=== PATIENT | male | born 1950 | race Asian ===

== ENCOUNTER 2023-12-19 06:13 | Day surgery (SDC) | payer OTHER, SELFPAY ==
[2023-12-19] VITALS (19 sets, daily range): BP systolic 119–150; BP diastolic 49–65; BMI 23.4
[2023-12-19 06:48] LABS: Hematocrit 34.1 % (39.0-52.0); Hemoglobin 11.3 g/dL (13.0-18.0); Mean Corp Hgb Conc. 33.1 g/dL (33.0-37.0); Mean Corpuscular Hgb 33.2 pg (27.0-31.0); Mean Corpuscular Volume 100.3 fL (80.0-94.0); Mean Platelet Volume 10.3 fL (7.4-10.4); Platelet Count 235 10^3/uL (130-400); Red Cell Dist. Width 14.2 % (11.5-14.5); White Blood Cell Count 10.9 10^3/uL (4.8-10.8)
[2023-12-19 06:58] LABS: INR 1.05; PT 13.8 Sec (11.4-14.6)
[2023-12-19 07:03] LABS: Blood Urea Nitrogen 43 mg/dl (9-20); Calcium 9.7 mg/dl (8.4-10.2); Carbon Dioxide 17 mmol/L (22-30); Chloride 108 mmol/L (98-107); Estimated Creatinine Clearance 40 ml/min; Glucose 127 mg/dl (70-99); Sodium 140 mmol/L (135-145); eGFR 48.85
--- NOTE | 2023-12-19 07:11 | W.SUR.PREOP ---
Pre-Operative Surgical Note
-
I have examined this patient prior to the performance of the scheduled procedure.
The patient's condition is unchanged from the time of the current History and
Physical and the patient is able to undergo the scheduled procedure.
--- NOTE | 2023-12-19 08:21 | W.SUR.POST ---
Surgical Immediate Post Op
Note
Pre Op Diagnosis: PAD
Post Op Diagnosis: Same
Procedure Performed: Diagnostic right lower extremity arteriogram
Primary Surgeon: Elan
Anesthesia: Local and sedation
Estimated Blood Loss: 2 cc
Fluids: See anesthesia flowsheet
Drains/Shunts: None
Specimens/Cultures: None
Doppler/Duplex/Angio (Y/N): Y
Complications: None
Operative Findings: Iliac aneurysms, bifurcation plaque, below knee arterial disease-requires open surgical intervention
--- NOTE | 2023-12-19 08:43 | OR.RPT ---
Operative Report
Operative Report
PROCEDURE DATE: 12/19/2023
Preoperative diagnosis: Debilitating right greater than left lower extremity claudication.
Postoperative diagnosis: Same
Procedure:
1. Duplex assisted left common femoral artery cannulation.
2. Aortogram and pelvic angiogram.
3. Diagnostic right lower extremity arteriogram with selective cannulation right common femoral artery via left common femoral artery puncture.
4. Left lower extremity arteriogram.
5. Supervision and interpretation.
Surgeon: Ansari
Tire Fabricator: None
Complications: None
Anesthesia: Local, sedation
Fluoroscopy:
4 min
24 mGy
6.41 Gy.cm2
Indications for procedure:
Debilitating right lower extremity calf claudication, worsening also on the left side now. Risk/benefits/alternatives of angiography discussed. Patient understood all wished to proceed.
Description of procedure:
Patient was identified, brought to the operating room. Placed on the table in the supine position. After the adequate administration of anesthesia, the patient was prepped and draped in the standard surgical fashion. A standard preoperative
timeout was undertaken and everybody was in agreement with the plan.
The left common femoral artery was accessed with a micropuncture kit under direct duplex ultrasound guidance. A 5 Samoan sheath was then advanced over a 0.035 inch wire, and a interiano's hook catheter was advanced into the abdominal aorta.
Aortogram and pelvic angiogram was obtained. Findings as follows:
Infrarenal aorta: Patent distal infrarenal aorta, mildly ectatic. No significant stenosis.
Right common iliac artery: Patent with significant luminal irregularity about a centimeter beyond the origin with what appeared to be possible aneurysmal degeneration more distally. Created an irregular flow channel such that flow in the true
segment of the lumen was continuous with mild to moderate stenosis, but there was some retrograde filling into a potential partially thrombosed aneurysm sac. Slightly difficult to tell on two-dimensional angiography.
Right external iliac artery: Patent with mild to moderate stenosis in the distal most segment.
Left common iliac artery: Patent with aneurysmal degeneration proximally, likely partially thrombosed.
Left external iliac artery: Patent with no significant stenosis.
Using a floppy angled hydrophilic wire, the right common femoral artery was cannulated and the catheter was advanced. Right lower extremity arteriogram was obtained. Findings as follows:
Common femoral artery: Patent with some small popcorn-like plaques but no severe stenosis.
Profunda femoris artery: Essentially occluded at the origin with bulky popcorn-like plaque. There is a large collateral that emanated from the origin of the profunda versus the distal common femoral artery and then reconstituted flow in the more
distal profunda that could be seen well on delayed imaging. Initial angiography suggested that the proximal branch was the main profunda, but the angle suggested otherwise, and in addition could see the bulky plaque in the main profunda at the
origin. And then could see reconstitution on delayed imaging.
Superficial femoral artery: Severe bulky plaque at the origin extending all the way to the origin that results in severe stenosis for the first 2 to 3 cm.
Popliteal artery: Patent with no definitive stenosis.
Anterior tibial artery: Patent proximally for few centimeters and then appears occluded. Although tibial filling was relatively weak/opacification was weak.
Tibial peroneal trunk: Patent with what appears to be severe diffuse stenosis. Although tibial filling was relatively weak/opacification was weak.
Peroneal artery: Patent, but distal filling slightly harder to see but it did appear to fill slowly distally. Tibial filling was relatively weak/opacification was weak.
Posterior tibial artery: Patent, appeared to be the dominant runoff vessel to the foot. On very delayed imaging could see crossing into the foot. But the more proximal to mid segment appeared diffusely small in size, but was difficult to fully
assess. Tibial filling was relatively weak/opacification was weak.
At this point, I felt that endovascular solution was not optimal. Patient will be potentially prepped for (discussions for) possible femoral endarterectomy with retrograde iliac stenting if needed. However will obtain CT angiogram imaging first to
better assess aneurysmal iliac arteries and common femoral/femoral bifurcation disease.
Patient was transported to the recovery room in stable condition. The sheath will be withdrawn there and manual pressure applied to the puncture site.
The patient tolerated procedure well.
[2023-12-19 11:09] LABS: Glucose - Point of Care 125 mg/dl (70-99)
== END 2023-12-19 12:37 | disposition home or self-care (01) ==
LOC: CATH 06:13
PROVIDERS: ATTENDING PHYSICIAN Surgery Vascular Surgery; FAMILY PHYSICIAN Internal Medicine; OTHER PHYSICIAN Internal Medicine Cardiovascular Disease
DX: I70.213 Atherosclerosis of native arteries of extremities with intermittent claudication, bilateral legs (principal); I12.9 Hypertensive chronic kidney disease with stage 1 through stage 4 chronic kidney disease, or unspecified chronic kidney disease; E11.22 Type 2 diabetes mellitus with diabetic chronic kidney disease; N18.30 Chronic kidney disease, stage 3 unspecified; I65.23 Occlusion and stenosis of bilateral carotid arteries; I44.7 Left bundle-branch block, unspecified; Z87.891 Personal history of nicotine dependence; Z79.84 Long term (current) use of oral hypoglycemic drugs; Z79.82 Long term (current) use of aspirin
CPT/HCPCS: 36246; 75716; 75625; 80048; 82962; 85027; 85610; 85730; 86850; 86900; 86901; C1769; C1894; Q9967

== ENCOUNTER 2024-01-01 08:34 | Outpatient (RCR) | payer MEDICARE, OTHER, SELFPAY ==
[2024-01-01 08:45] VITALS: BP 143/55
[2024-01-01] MEDS: SODIUM BICARBONATE 1150 MEQ IV (08:59)
== END 2024-01-02 09:55 | disposition home or self-care (01) ==
LOC: OID 08:34
PROVIDERS: ATTENDING PHYSICIAN Surgery Vascular Surgery; FAMILY PHYSICIAN Internal Medicine
DX: I73.9 Peripheral vascular disease, unspecified (principal); I65.23 Occlusion and stenosis of bilateral carotid arteries
CPT/HCPCS: 96365; 96366

== ENCOUNTER → 2024-01-01 09:17 | Outpatient (REF) | payer MEDICARE, OTHER, SELFPAY | LOC: RAD 09:17 | PROVIDERS: ATTENDING PHYSICIAN Surgery Vascular Surgery; FAMILY PHYSICIAN Internal Medicine | DX: I73.9 Peripheral vascular disease, unspecified (principal) | CPT/HCPCS: 75635; Q9967 ==

== ENCOUNTER 2024-01-29 08:04 | Inpatient (IN) | payer MEDICARE, OTHER, SELFPAY ==
[2024-01-27 09:27] VITALS: BMI 22.6
[2024-01-27 09:49] LABS: % Basophils 0.5 % (0-2); % Eosinophils 2.1 % (0-6); % Immature Granulocytes 0.7 % (0-0.5); % Lymphocytes 10.7 % (20.5-51.1); % Monocytes 8.5 % (1.7-9.3); % Neutrophils 77.5 % (42.2-75.2); Absolute Eosinophils 0.2 10^3/uL (0-0.7); Absolute Immature Granulocytes 0.1 10^3/uL (0-0.05); Absolute Lymphocytes 0.8 10^3/uL (1.2-3.4); Absolute Monocytes 0.6 10^3/uL (0.1-0.6); Absolute Neutrophils 5.6 10^3/uL (1.4-6.5); Hematocrit 29.6 % (39.0-52.0); Hemoglobin 9.8 g/dL (13.0-18.0); Mean Corp Hgb Conc. 33.1 g/dL (33.0-37.0); Mean Corpuscular Hgb 32.2 pg (27.0-31.0); Mean Corpuscular Volume 97.4 fL (80.0-94.0); Mean Platelet Volume 9.7 fL (7.4-10.4); Nucleated Red Blood Cells % 0 % (-); Platelet Count 219 10^3/uL (130-400); Red Blood Cell Count 3.04 10^6/uL (4.70-6.10); Red Cell Dist. Width 13.5 % (11.5-14.5); White Blood Cell Count 7.3 10^3/uL (4.8-10.8)
[2024-01-27 10:11] LABS: INR 1.12; PT 14.2 Sec (11.4-14.6)
[2024-01-27 10:23] LABS: APTT 28.4 Sec (23.4-35.0)
[2024-01-27 10:46] LABS: Blood Urea Nitrogen 25 mg/dl (9-20); Calcium 9.5 mg/dl (8.4-10.2); Carbon Dioxide 22 mmol/L (22-30); Chloride 107 mmol/L (98-107); Estimated Creatinine Clearance 43 ml/min; Glucose 149 mg/dl (70-99); Potassium 4.8 mmol/L (3.5-5.1); Sodium 141 mmol/L (135-145); eGFR 53.07
[2024-01-29] VITALS (19 sets, daily range): BP systolic 105–160; BP diastolic 49–76; BMI 22.5
[2024-01-29 08:58] LABS: Glucose - Point of Care 126 mg/dl (70-99)
[2024-01-29] MEDS: PERIDEX 0.12% ORAL RINSE 15 ML PO (09:01)
[2024-01-29] MEDS: BACTROBAN NASAL 1 GRAM NASAL (09:01)
[2024-01-29] MEDS: NSS 500 IV (09:02)
[2024-01-29 14:58] LABS: Glucose - Point of Care 148 mg/dl (70-99)
--- NOTE | 2024-01-29 15:03 | W.SUR.POST ---
Surgical Immediate Post Op
Note
Pre Op Diagnosis: Peripheral arterial disease
Post Op Diagnosis: Peripheral arterial disease
Procedure Performed: Right femoral endarterectomy with a oefp-qe-kizf anastomosis of SFA/profunda and interposition femoral bypass
Primary Surgeon: Dipesh Ansari MD
Office Clerk Assistant: RAFAELA Bush
Anesthesia: GETA
Estimated Blood Loss: 15ml
Fluids: See anesthesia flowsheet
Drains/Shunts: N/A
Specimens/Cultures: Right femoral plaque
Doppler/Duplex/Angio (Y/N): Y
Complications: None
Operative Findings: Doppler right leg PT/DP signal
[2024-01-29 15:38] LABS: Glucose - Point of Care 161 mg/dl (70-99)
--- NOTE | 2024-01-29 15:41 | CON.INTV ---
Consultation
Consultation Request
Date/Time Consultation Requested: 01/29/2024 - 150
Date/Time Consultation Performed: 01/29/2024 - 153
Requesting Provider: RAFAELA Lees
Performing Provider: Cade Roblero MD
Reason for Consultation: s/p right femoral endarterectomy
Medical History
-
Chief Complaint: Elective right femoral endarterectomy with bypass from HORSE TRAINER to profunda/SFA
History of Present Illness:
73-year-old male former tobacco smoker with a past medical history of carotid artery stenosis, PAD, hyperlipidemia, hypertension, left bundle branch block, DM type II and CKD stage III who presents with elective right femoral endarterectomy with RLE
bypass. Patient known to vascular surgery service with last visit on 01/07/[address] Ansari. Patient has known PAD. He has extensive atherosclerotic plaque diffusely in his lower extremities. His right common iliac artery has a dissection like
plaque that results in moderate stenosis. He also has significant stenosis in the right external iliac artery more distally. He does have more distal runoff disease as well. He also has diffuse iliac disease on the left with ectatic left common
iliac artery with almost dissection like finding seen on prior angiogram. Vascular intervention was discussed including right femoral endarterectomy. Risks and benefits of vascular intervention were discussed, and today he underwent right femoral
endarterectomy with interposition bypass from common femoral artery to syndactylized profunda/superficial femoral artery. There were no immediate complications and he was transferred to the ICU for further care. [facility] services consulted for
additional management/recommendations.
When I saw the patient he was resting in bed in no acute distress. Patient's , [employer], at bedside. All questions were answered. Heart rate currently 71, BP via left radial A-line: 158/55, BP via NIBP: 141/66, and saturating 97% on room air. He
is in no acute distress, breathing comfortably. Denies CP, SOB, VELASQUEZ, abdominal pain, nausea, lower extremity tingling/numbness/weakness, fevers or chills.
PMHx: DM type II, hyperlipidemia, LBBB, hypertension, CKD stage III, carotid artery stenosis, PAD
PShx: Cataract extraction, Plaquenil retinopathy, appendectomy, prostate biopsy
Past Medical History
Past Medical History: Other (Above as per HPI)
Past Surgical History: Other (Above as per HPI)
Social History
Tobacco: Former Smoker (Previous heavy smoker smoking 2-2.5 packs/day x 35-40 years, quit ~20 years ago)
Alcohol: None
Drug: None
Personal:
Living: With Family
Family History
Family History: Reviewed & Not Pertinent
Allergies / Home Medications
Allergies
Allergy/AdvReac Type Severity Reaction Status Date / Time
No Known Allergies Allergy Verified 01/29/24 08:20
Home Medications
�Medication �Instructions �Recorded �Confirmed �Last Taken �Type
Grape Seed 1 tab PO BID 12/17/23 01/29/24 01/28/24 18:00 History
amlodipine 10 mg tablet 5 mg PO DAILY 12/17/23 01/29/24 01/28/24 06:00 History
ascorbic acid (vitamin C) 1,000 mg 2 g PO TID 12/17/23 01/29/24 01/28/24 18:00 History
tablet (Vitamin C)
aspirin 81 mg chewable tablet 81 mg PO DAILY 12/17/23 01/29/24 01/28/24 06:00 History
calcium 600 mg (as 1 tab PO DAILY 12/17/23 01/29/24 01/28/24 06:00 History
carbonate)-vitamin D3 10 mcg (400
unit) tablet (Calcium 600 + D(3))
cyanocobalamin (vitamin B-12) 1,000 mcg PO .AFTERNOON 12/17/23 01/29/24 01/28/24 12:00 History
1,000 mcg capsule
fpekvbpfjuo-wkf-jcgejfoer-vitC 1 cap PO BID 12/17/23 01/29/24 01/28/24 18:00 History
capsule (Glucosamine Complex-MSM
capsule)
lutein 1 tab PO DAILY 12/17/23 01/29/24 01/28/24 18:00 History
xwvkqfmlxayf-veuzuvyk-cvrstx tablet 1 tab PO DAILY 12/17/23 01/29/24 01/28/24 06:00 History
olmesartan 40 mg tablet 40 mg PO QPM 12/17/23 01/29/24 01/28/24 18:00 History
tamsulosin 0.4 mg capsule 0.4 mg PO DAILY 12/17/23 01/29/24 01/28/24 18:00 History
atorvastatin 40 mg tablet 40 mg PO .AFTERNOON 12/19/23 01/29/24 01/28/24 12:00 History
metoprolol succinate 25 mg capsule 25 mg PO DAILY 12/19/23 01/29/24 01/28/24 12:00 History
sprinkle, ext. release 24 hr
coenzyme Q10 100 mg capsule 200 mg PO DAILY 01/29/24 01/29/24 01/28/24 06:00 History
(CoQ-10)
metformin 500 mg tablet,extended 500 mg PO QPM Diabetes 01/29/24 01/29/24 01/27/24 History
release 24 hr
Review of Systems
-
History Source: Patient
All other systems: Negative unless noted (12 point ROS performed and is negative unless mentioned above.)
Vitals / Labs / Diagnostic Testing
Vital Signs
Temp Pulse Resp BP Pulse Ox
97.5 F 70 14 148/63 97
01/29/24 19:52 01/29/24 18:45 01/29/24 18:45 01/29/24 18:30 01/29/24 18:45
Lab Data
01/29/24 15:45
Diagnostic Testing:
Physical Exam
-
HEENT: Normocephalic and Anicteric
Cardiovascular: S1/S2 and Peripheral Edema (negative)
Respiratory: Clear, Wheeze (negative), Rales (negative), Rhonchi (negative) and Non-Labored Respirations
GI: Soft, Non Distended, Non Tender and Normal Bowel Sounds
Neurology: AO x 3 and Tremors (negative)
Skin: Warm and Dry
General: Respiratory Distress (negative), Comfortable, Fever (negative), Chills (negative) and Sweats (negative)
Assessment
-
Assessment: 73-year-old male former tobacco smoker with a past medical history of carotid artery stenosis, PAD, hyperlipidemia, hypertension, left bundle branch block, DM type II and CKD stage III who presents with elective right femoral
endarterectomy with RLE bypass. Patient known to vascular surgery service with last visit on 01/07/[address] Ansari. Patient has known PAD. He has extensive atherosclerotic plaque diffusely in his lower extremities. His right common iliac artery
has a dissection like plaque that results in moderate stenosis. He also has significant stenosis in the right external iliac artery more distally. He does have more distal runoff disease as well. 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
ectatic left common iliac artery with almost dissection like finding seen on prior angiogram. Vascular intervention was discussed including right femoral endarterectomy. Risks and benefits of vascular intervention were discussed, and on 01/29/2024
he underwent right femoral endarterectomy with interposition bypass from common femoral artery to syndactylized profunda/superficial femoral artery. There were no immediate complications and he was transferred to the ICU for further care.
[facility] services consulted for additional management/recommendations.
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
Impression:
#PAD with debilitating right lower extremity claudication with severe femoral bifurcation plaque/occlusive disease s/p right femoral endarterectomy with interposition bypass from HORSE TRAINER to syndactylized profunda/SFA (POD #0)
#Former heavy tobacco smoker (quit 20 years ago with >00-sffr-pjvo history)
#Chronic anemia
#Metabolic acidosis with normal anion gap
#Hyperkalemia (mild)
#DM type II c/b hyperglycemia
#History of LBBB
#Carotid artery stenosis
#Hyperlipidemia
#Hypertension
Plan:
Postoperative surgical intensive care unit monitoring
Supplemental oxygen as needed to maintain SpO2 >90-94%
prn nebulized bronchodilators
Incentive spirometry encouraged 10x per hour for at least 4 hrs a day
Aspiration precautions
Pain control
Neuro and vascular checks per protocol
Maintain MAP>65
Replete electrolytes with K>4, Mg>2
Maintain euglycemia with goal BG 140-180
Vascular surgery following-correspondence and operative notes reviewed
Transfuse blood products as needed to keep Hb>7g/dL, and plt>50k (given post-operative status)
DVT prophylaxis
Early nutrition
Early mobilization
Critical care statement: A total of 41 minutes of critical care time was provided for this patient today. This includes management of unstable vital signs, evaluation of the patient at bedside, reviewing the patient's pertinent medical records
including radiographs, microbiology, laboratory evaluations, and discussion with primary team, consultants, pharmacy, nutrition, physical therapy, case management, charge nurse, critical care nursing, and respiratory therapy.
--- NOTE | 2024-01-29 15:50 | OR.RPT ---
Operative Report
Operative Report
PROCEDURE DATE: 01/29/2024
Preoperative diagnosis: Debilitating right lower extremity claudication. Severe femoral bifurcation plaque/occlusive disease.
Postoperative diagnosis: Same
Procedure: Right femoral endarterectomy with interposition bypass from common femoral artery to syndactylized profunda/superficial femoral artery.
Surgeon: Elan
Supervisory Investigative Specialist: CASS Diallo, required for all aspects of procedure including assistance with traction/countertraction, following of suture line, assistance with closure.
Complications: None
Anesthesia: General
Indications for procedure:
Severe right lower extremity claudication. Femoral bifurcation disease identified on angiography. Risk/benefits/alternatives of femoral endarterectomy fully discussed. Patient understood all wish to proceed.
Description of procedure:
Patient was identified brought to the operating room placed on the table in supine position. After the adequate administration of anesthesia he was prepped and draped in the standard surgical fashion. A standard preoperative timeout was undertaken
and everybody was in agreement the plan. A standard longitudinal incision was made in the right groin that was carried through the skin subcutaneous tissue with the electrocautery. I carried it down to the level of the inguinal ligament and
identified the common femoral artery as it emerged from underneath the inguinal ligament. The common femoral artery was dissected past the femoral bifurcation onto the superficial femoral artery on its anterior surface initially. I dissected the
superficial femoral artery for about 4 to 6 cm beyond its origin where it was very soft. The first 1 or 2 cm of the SFA was hardened with significant plaque that felt occlusive, but then was softer and then there was a second plaque area focally
and then beyond here the artery was softer (correlated to findings on CT scan with near occlusive plaque or occlusive plaque at the origin, and some plaque milder stenosis just beyond there and then patent beyond there). Where it was soft I had
circumferentially dissected and passed a vessel loop around it. Next, I dissected underneath the inguinal ligament, carefully controlling the circumflex iliac artery branches with Vesseloops as I did so. Proximal to the circumflex iliac artery
branches, the distal external iliac artery softened somewhat. I felt therefore that it was clampable here. I passed a vessel loop after careful circumferential dissection here.
Now, I dissected the profunda. There were couple crossing veins at the origin which were ligated between silk ties and divided. There was also moderate branch that emanated laterally around the origin of the profunda which I controlled with a
vessel loop after careful circumferential dissection. I continued dissection on the profunda anterior wall noting significant plaque to palpation (artery was still hardened). I had to dissect quite far distally until I was able to finally find a
softer point (I could still palpate some thin plaque but the artery was compressible and soft and the lumen felt full). This was just proximal to a branch point, and therefore both the main profunda branch and the other branch were controlled after
careful circumferential dissection with Vesseloops. Of note, in order to dissect this far down, I had to ligate any crossing vein branches between silk ties and then divided them. Given the extent of dissection on the profunda and length of patch
I likely would need, I was concerned about using a bovine pericardial patch and therefore elected to use saphenous vein. I therefore dissected the saphenous vein in the medial aspect of my incision site. I dissected back to the saphenofemoral
junction. I then dissected for about 15 cm distally. A small skip incision was made to complete the dissection. Any branches were then ligated between silk ties and then divided thereby mobilizing the saphenous vein out of its bed. I then
ligated the distal vein with a heavy silk tie and a clip. I then transected. At the saphenofemoral junction I then ligated again with a heavy silk tie and a clip. I then transected here. I distended, it distended very well.
Now I gave the patient an appropriate dose of heparin. Once this had circulated for 3 minutes, I clamped the outflow arteries (SFA and profunda, and tightened Vesseloops on any branches that I controlled at this point). I then placed a Derra clamp
on the distal external iliac artery. I now made an arteriotomy in the mid common femoral artery where there was a slight soft spot (the remainder distally and proximally were fairly calcified). I then extended this arteriotomy with a Johnston scissor
onto the profunda. There was heavy plaque throughout the wall of the common femoral artery more distally but it did not result in severe stenosis. However at the origin of the profunda and the origin the SFA the plaque resulted in severe near
obliterative or completely obliterative stenosis. I difficulty even getting my Johnston through the origin of the profunda. I carried the arteriotomy well down distally on the profunda until I got to the softer patent lumen. Now I carried my
arteriotomy slightly cephalad to the more proximal common femoral artery. There is still some posterior plaque but no significant stenosis here. At this point I used a Royal to start endarterectomized in the plaque out of the profunda. As I
endarterectomized the plaque in the profunda and back onto the common femoral artery, I noticed that the plaque can thin the wall so significantly that there was barely any thickness to the residual wall. I was very concerned about the residual
wall at this point. I did not think that maintaining that wall and sewing a patch was viable and that the artery is at risk for rupture. Therefore, at this point I felt that interposition bypass may be better. I therefore then transected the
distal profundus where it was soft. (Just proximal to my clamp). I then transected the common femoral artery proximally. The SFA in the vicinity of my clamp was noted to be soft. Therefore I felt that I could transected and since I was so far
down the profunda as well, the to aligned relatively reasonably well. Therefore I now transected the SFA just proximally to my clamp. I then spatulated in a hzcf-ap-igzj fashion the SFA and profunda and sewed a xgcy-mx-nqrh anastomosis with a
running 6-0 prolene suture (syndactylyzing the origin of both the SFA and profunda into a common mouth, essentially recreating the femoral bifurcation more distally). I ran the suture line up each side and then left the suture strand so that I
could tie it to the distal aspect of the bypass on either side. I now brought my vein onto the field and distended it well. It distended nicely. I used a mL valvulotome to valvulotomize the vein under distention with saline so as to maintain it
in a nonreversed fashion. I now spatulated the proximal end of the vein and sewed an end-to-end anastomosis to the common femoral artery using a running 5-0 Prolene suture. I completed and tied down my suture line and then placed a bulldog clamp
on the vein graft. I then released my Derra clamp proximally. There was 1 small suture line bleeding site posteriorly on the suture line that was repaired with a single 6-0 Prolene ortvvr-le-lammr suture. Full hemostasis was noted now at the
anastomosis. There was excellent pulsatile flow now into the vein graft. At this point I trimmed any redundancy of the vein graft and spatulated the distal aspect. I then sewed an end-to-end anastomosis (spatulated vein to the newly recreated
femoral bifurcation) between the vein and the syndactylized profundus/SFA. This was done with a running 6-0 Prolene suture. Prior to completing and tying down my suture line I backbled both the profunda and the SFA which both backbled well. I
then flushed out the vein graft which had excellent inflow pulsatile bleeding. I then completed and tied down my suture line after instilling heparinized saline. Next, I released my clamps on the SFA/profunda and then my bulldog clamp on the vein
graft. There is excellent pulsatile flow now into the femoral bifurcation vessels (SFA and profunda). Doppler confirmed excellent Doppler signals. At this point I was very satisfied. A couple 6-0 Prolene trcjal-ml-ufcrm sutures were placed on
the suture line as repair sutures. I irrigated and gave protamine to reverse the heparin. I confirmed full hemostasis. We then closed in layers using for the groin 2 layers of 2-0 Vicryl running suture followed by 3-0 Vicryl running suture
followed by 4-0 Monocryl subcuticular running stitch. The small skip incision for vein harvest was closed with a single nuyswd-qx-frnjb 2-0 Vicryl deeper layer followed by 3-0 Vicryl running layer followed by 4-0 Monocryl subcuticular running
stitch. Dermabond was applied to the incision sites. Dressings were applied. The patient tolerated the procedure well. He had a palpable popliteal pulse on the right side as well as an excellent dopplerable PT signal (possibly a week PT pulse)
upon completion.
[2024-01-29 15:54] LABS: Hemoglobin 8.9 g/dL (13.0-18.0); Mean Corpuscular Hgb 31.2 pg (27.0-31.0); Mean Corpuscular Volume 94.7 fL (80.0-94.0); Mean Platelet Volume 10.1 fL (7.4-10.4); Platelet Count 189 10^3/uL (130-400); Red Blood Cell Count 2.85 10^6/uL (4.70-6.10); Red Cell Dist. Width 13.4 % (11.5-14.5); White Blood Cell Count 10.3 10^3/uL (4.8-10.8)
[2024-01-29 16:08] LABS: Blood Urea Nitrogen 23 mg/dl (9-20); Carbon Dioxide 20 mmol/L (22-30); Chloride 108 mmol/L (98-107); Estimated Creatinine Clearance 55 ml/min; Glucose 165 mg/dl (70-99); Potassium 5.7 mmol/L (3.5-5.1); Sodium 137 mmol/L (135-145); eGFR > 60.00
[2024-01-29] MEDS: NSS 1000 IV (17:07)
--- NOTE | 2024-01-29 17:34 | PTCARENOTE ---
pt arrived from [facility]. placed on monitor. groin and pulse check done with [facility] nurse. pt wakes to name. speaks broken jordanian but can make his needs known. states ok to speak with his family for admission assessment. right groin with aquacell
dressing c/d/i. right pt pulse present by doppler foot cool to touch. no dp pulse present. dr Ansari at bedside to see pt and examine. ivf running as ordered. left giovanna in place and zeroed. georges in place.
[2024-01-29] MEDS: VITAMIN B-12 1000 MCG PO (18:25)
[2024-01-29] MEDS: LIPITOR 40 MG PO (18:25)
[2024-01-29 18:38] LABS: Glucose - Point of Care 166 mg/dl (70-99)
--- NOTE | 2024-01-29 20:00 | PTCARENOTE ---
rec`d pt at 1900 AAOx3. vascular checks continued. pulse checked with previous nurse. bilateral PT pulses present with doppler. rt DP not present w/ doppler. dr Ansari aware from previous shift nurse. left DP present w/ doppler. left radial a line
zeroed and transduced. SR on monitor. maintaining SBP between 100-200 per MD orders. RA POX 97%. georges draining clear yellow urine. rt groin site covered w/ aquacell. c/d/i w/ no drainage. rt AC and rt FA flushed and patent. NS going at 80cc/hr.
family at bedside. call becerril in reach safe environment maintained.
[2024-01-29 20:27] LABS: Blood Urea Nitrogen 24 mg/dl (9-20); Calcium 8.2 mg/dl (8.4-10.2); Carbon Dioxide 17 mmol/L (22-30); Chloride 108 mmol/L (98-107); Estimated Creatinine Clearance 50 ml/min; Glucose 212 mg/dl (70-99); Potassium 5.6 mmol/L (3.5-5.1); Sodium 137 mmol/L (135-145); eGFR > 60.00
--- NOTE | 2024-01-29 20:32 | W.PN.UPDATE ---
Addendum entered and electronically signed by RAFAELA Gannon 01/30/24 00:56:
Repeat midnight BMP K was 5.0, Dr. Ansari vascular surgeon made aware, will repeat labs in AM.
Original Note:
Update Note
Progress Note Update
01/29/24
2030- Repeated bmp, K 5.6 from [address] Ansari, vascular surgeon, orders received: give bicarb 1amp and 10u IV insulin, recheck bmp at midnight. RN updated and orders placed.
[2024-01-29] MEDS: NOVOLOG FLEXPEN-LOW RESISTANCE SC (20:49)
[2024-01-29] MEDS: DEXTROSE 50% SYRINGE 25 GRAMS IV (21:02)
[2024-01-29] MEDS: NOVOLIN R 10 UNITS IV (21:03)
[2024-01-29] MEDS: SODIUM BICARBONATE 50 MEQ IV (21:04)
[2024-01-29 21:13] LABS: Glucose - Point of Care 209 mg/dl (70-99)
[2024-01-29] MEDS: HEPARIN 5000 UNITS SC (21:15)
[2024-01-29 22:16] LABS: Glucose - Point of Care 304 mg/dl (70-99)
[2024-01-29 23:42] LABS: Glucose - Point of Care 242 mg/dl (70-99)
[2024-01-30] VITALS (22 sets, daily range): BP systolic 116–160; BP diastolic 56–100; BMI 22.5
--- NOTE | 2024-01-30 | PTCARENOTE ---
DP and PT pulses all now present w/ doppler.
[2024-01-30 00:21] LABS: Blood Urea Nitrogen 24 mg/dl (9-20); Calcium 8.1 mg/dl (8.4-10.2); Carbon Dioxide 20 mmol/L (22-30); Chloride 108 mmol/L (98-107); Estimated Creatinine Clearance 55 ml/min; Glucose 216 mg/dl (70-99); Sodium 139 mmol/L (135-145); eGFR > 60.00
[2024-01-30] MEDS: NSS 1000 IV (03:21)
[2024-01-30 03:43] LABS: Hematocrit 25.1 % (39.0-52.0); Hemoglobin 8.4 g/dL (13.0-18.0); Mean Corp Hgb Conc. 33.5 g/dL (33.0-37.0); Mean Corpuscular Hgb 31.1 pg (27.0-31.0); Mean Platelet Volume 10.2 fL (7.4-10.4); Platelet Count 200 10^3/uL (130-400); Red Cell Dist. Width 13.3 % (11.5-14.5); White Blood Cell Count 9.2 10^3/uL (4.8-10.8)
[2024-01-30 03:53] LABS: INR 1.16; PT 14.8 Sec (11.4-14.6)
[2024-01-30 03:54] LABS: APTT 29.7 Sec (23.4-35.0)
[2024-01-30 03:55] LABS: Blood Urea Nitrogen 24 mg/dl (9-20); Calcium 8.3 mg/dl (8.4-10.2); Carbon Dioxide 20 mmol/L (22-30); Chloride 110 mmol/L (98-107); Estimated Creatinine Clearance 55 ml/min; Glucose 122 mg/dl (70-99); Potassium 4.9 mmol/L (3.5-5.1); Sodium 139 mmol/L (135-145); eGFR > 60.00
--- NOTE | 2024-01-30 07:55 | W.PN.VS ---
Addendum entered and electronically signed by Dipesh Ansari MD 01/30/24 14:35:
Seen and examined with ROVING WEIGHT GAUGER Yoel and CASS Bonner. Agree with findings as noted below. Patient without significant complaints. Abdomen soft, nondistended, nontender. Right groin dressing clean dry and intact. Groin is soft. No hematoma. 2+
palpable popliteal pulse. Right foot warm with excellent PT Doppler signal. Plan/as discussed and noted below.
Original Note:
Today's Communication / Plan
-
Patient seen and evaluated with Dr. Dipesh Ansari, below plan reviewed with attending.
Assessment/Plan
-
Assessment: 73-year-old male POD #1 Right femoral endarterectomy with a khkr-fj-[id number] anastomosis of SFA/profunda and interposition femoral bypass
Plan:
Discontinue arterial line
Discontinue IV fluids
Hyperkalemia noted overnight, now corrected. Will follow with repeat a.m. labs tomorrow
Discontinue Montesinos catheter
Can get OOB to chair later this afternoon, will hold off on PT until tomorrow
Continue ICU monitoring today due to every hour neurovascular checks
Subjective Data
-
Date of Service: January 30, 2024
Patient seen and examined at bedside, offers no complaints. Reports minimal postoperative pain that is well-managed with current pain medication regimen. Denies nausea, vomiting, fever, and chills.
Objective Data
-
Vital Signs
Temp Pulse Resp BP Pulse Ox
97.9 F 73 15 153/61 97
01/29/24 23:19 01/30/24 07:15 01/30/24 07:15 01/30/24 07:00 01/30/24 07:15
Intake and Output
01/29/24 01/30/24 01/31/24
06:59 06:59 06:59
Intake Total 1575 / 1655 80 / 80
Output Total 1220 / 1370 150 / 150
Balance 355 / 285 -70 / -70
Intake:
IV fluids (Total) 1575 / 1655 80 / 80
NSS 355 / 355
Nss 1,000 ml @ 80 mls/hr IV . 1120 / 1200 80 / 80
[id number] DO Rx#:[id number]
normosol 100 / 100
Output:
Urine, Montesinos 1220 / 1370 150 / 150
Lab Results
01/30/24 03:28
01/30/24 03:28
Calcium 8.3 mg/dl (8.4-10.2) L 01/30/24 03:28
Physical Exam
-
No apparent distress, resting in bed comfortably
No tachycardia
No dyspnea on room air
Abdomen soft, nontender, nondistended
Montesinos catheter draining clear yellow urine
Left groin dressing CDI, no evidence of hematoma, all surrounding compartments soft
Left foot warm, PT Doppler signal
[2024-01-30] MEDS: NOVOLOG FLEXPEN-LOW RESISTANCE SC ×2 (08:00→12:11)
--- NOTE | 2024-01-30 08:07 | W.PN.INTV ---
Today's Communication / Plan
Recommendations
Up OOB as tolerated
Maintain SpO2 >90-94%
Monitor [K]
Encourage incentive spirometer
Defer disposition regarding transfer out of ICU to vascular surgery; while patient remains in the ICU, loading machine operator helper services will continue to follow along; once transferred out of ICU then we will sign off at that time
Assessment
-
Assessment: 73-year-old male former tobacco smoker with a past medical history of carotid artery stenosis, PAD, hyperlipidemia, hypertension, left bundle branch block, DM type II and CKD stage III who presents with elective right femoral
endarterectomy with RLE bypass. Patient known to vascular surgery service with last visit on 01/07/[address] Ansari. Patient has known PAD. He has extensive atherosclerotic plaque diffusely in his lower extremities. His right common iliac artery
has a dissection like plaque that results in moderate stenosis. He also has significant stenosis in the right external iliac artery more distally. He does have more distal runoff disease as well. 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
ectatic left common iliac artery with almost dissection like finding seen on prior angiogram. Vascular intervention was discussed including right femoral endarterectomy. Risks and benefits of vascular intervention were discussed, and on 01/29/2024
he underwent right femoral endarterectomy with interposition bypass from common femoral artery to syndactylized profunda/superficial femoral artery. There were no immediate complications and he was transferred to the ICU for further care.
Marine Design Engineer services consulted for additional management/recommendations.
Chronic conditions TIMBER SPRINKLER: DM type II, hyperlipidemia, LBBB, hypertension, CKD stage III, carotid artery stenosis, PAD
Impression:
#PAD with debilitating right lower extremity claudication with severe femoral bifurcation plaque/occlusive disease s/p right femoral endarterectomy with interposition bypass from [employer] HE[employer] AND FITNESS COACH to syndactylized profunda/SFA (POD #1)
#Former heavy tobacco smoker (quit 20 years ago with >23-[id number]-dwpu history)
#Chronic anemia
#Metabolic acidosis with normal anion gap - resolved
#Hyperkalemia (mild) - resolved s/p IV insulin/D50 on 01/29/2024
#DM type II c/b hyperglycemia
#History of LBBB
#Carotid artery stenosis
#Hyperlipidemia
#Hypertension
Plan:
Postoperative surgical intensive care unit monitoring
Supplemental oxygen as needed to maintain SpO2 >90-94%
prn nebulized bronchodilators
Incentive spirometry encouraged 10x per hour for at least 4 hrs a day
Aspiration precautions
Pain control
Neuro and vascular checks per protocol
Maintain MAP>65
Replete electrolytes with K>4, Mg>2
Maintain euglycemia with goal BG 140-180
Vascular surgery following-correspondence and operative notes reviewed
Transfuse blood products as needed to keep Hb>7g/dL, and plt>50k (given post-operative status)
DVT prophylaxis
Early nutrition
Early mobilization
Total time spent today was 78 minutes for this encounter. Time includes reviewing laboratory test/imaging results, reviewing pertinent medical records, obtaining and reviewing medical history, performing an appropriate exam, ordering medications,
tests and procedures. Time also includes documentation of this encounter, coordinating patient care and communicating with other healthcare professionals. Total time does not include separately billed tests performed on this date of service.
Subjective Dataa
Subjective Data
Date of Service:
Date of Service: January 30, 2024
Chief Complaint: Marine Design Engineer Follow Up
Subjective:
Patient seen and evaluated this morning. No events reported from overnight. He feels well. Heart rate 61, BP 134/60 and saturating 97% on room air. He denies chest pain, shortness of breath, VELASQUEZ, abdominal pain, lower extremity numbness/tingling,
no lower extremity weakness, fevers or chills.
Review of Systems
General: Other (Negative unless mentioned above)
Objective Data
Data Reviewed
Vital Signs / I&O / Oxygen:
Vital Signs
Temp Pulse Resp BP Pulse Ox
98.3 F 69 15 153/61 97
01/30/24 08:28 01/30/24 09:27 01/30/24 07:15 01/30/24 09:27 01/30/24 07:15
Intake and Output
01/29/24 01/30/24 01/31/24
06:59 06:59 06:59
Intake Total 1575 / 1655 160 / 160
Output Total 1220 / 1370 500 / 500
Balance 355 / 285 -340 / -340
SaO2 97
Physical Exam
General: Respiratory Distress (negative), Comfortable, Chills (negative) and Sweats (negative)
HEENT: Normocephalic and Anicteric
Cardiovascular: S1-S2 and Peripheral Edema (negative)
Respiratory: Wheeze (negative), Crackles (negative), Rhonchi (negative) and Non-Labored Respirations
GI: Soft, Non Distended, Non Tender and Normal Bowel Sounds
Neurology: AO x 3 and Tremors (negative)
Skin: Warm, Dry, Cyanosis (negative) and Jaundice (negative)
Labs/Micro/Reports
Lab Data
01/30/24 03:28
01/30/24 03:28
Laboratory Results
01/30/24
03:28
PT 14.8 H
INR 1.16
APTT 29.7
[2024-01-30 08:52] LABS: Glycohemoglobin (HgbA1c) 6.2 % (4.0-5.6)
[2024-01-30 09:01] LABS: Glucose - Point of Care 134 mg/dl (70-99)
[2024-01-30] MEDS: OSCAL 500 + D 500 MG PO (09:26)
[2024-01-30] MEDS: NORVASC 5 MG PO (09:27)
[2024-01-30] MEDS: LOW STRENGTH ASPIRIN 81 MG PO (09:27)
[2024-01-30] MEDS: HEPARIN 5000 UNITS SC (09:27)
[2024-01-30] MEDS: THERAGRAN 1 TABLET PO (09:27)
[2024-01-30] MEDS: TOPROL XL 25 MG PO (09:27)
[2024-01-30] MEDS: FLOMAX 0.4 MG PO (09:28)
--- NOTE | 2024-01-30 10:00 | PTCARENOTE ---
Assumed care of patient at 0645. Assessment completed and documented in shift assessment on worklist.
Patient is AAOX3, pleasant and cooperative. Primarily Frisian speaking. Used machine boss services via available iPad and speak with both patient and patient's about plan of care today. R Femoral Surgical Incision CDI. B/L LE Pulses in DP and PT +
per Doppler. Continuing with Q1H neurovascular checks. Removed Montesinos (patient now DTV), and arterial line per order.
--- NOTE | 2024-01-30 10:40 | PTCARENOTE ---
Concerned about potential ST elevation on monitor. Notified vascular surgery. To obtain EKG and labs per order.
[2024-01-30 11:42] LABS: Blood Urea Nitrogen 23 mg/dl (9-20); Calcium 8.4 mg/dl (8.4-10.2); Carbon Dioxide 23 mmol/L (22-30); Chloride 106 mmol/L (98-107); Estimated Creatinine Clearance 55 ml/min; Glucose 152 mg/dl (70-99); Magnesium 1.8 mg/dl (1.6-2.3); Potassium 4.8 mmol/L (3.5-5.1); Sodium 139 mmol/L (135-145); eGFR > 60.00
[2024-01-30 11:47] LABS: Troponin I < 0.012 ng/ml
--- NOTE | 2024-01-30 12:00 | PTCARENOTE ---
Assessment unchanged. Patient had spontaneous void of 200mL. Awaiting lunch. When lunch arrives, will assist patient into chair.
[2024-01-30 12:04] LABS: Glucose - Point of Care 150 mg/dl (70-99)
--- NOTE | 2024-01-30 13:00 | CM ---
CM following re: discharge planning.
Discussed in Rounds, reviewed pt's chart, met with pt. Pt's spouse and daughter at bedside.
Pt is a 73 year old mostly Kyrgyz speaking male, admitted with primary dx of POD #1 s/p Right femoral endarterectomy.
Per daughter, pt was born and raised in [place] [facility] [place], immigrated to [place] 26 years ago and resided with family in [place]. Pt lives with daughter in a 2SH, 2 steps to enter, pt's spouse lives with another daughter. Pt ambulates with a walker
and a cane, had VN services and daughter does not remember the name. Pt's daughter to let this CM now the name of VN provider and daughter did tel that that agency has Kyrgyz speaking staff.
PT and OT will evaluate the pt to determine a level of care at discharge.
PCP: Ric[facility].
Pharmacy: [facility] [place].
D/C plan: most likely home with VN services. Pt/OT to confirm a level of care.
CM will follow with discharge plan updates as hospitalization progresses
[2024-01-30 16:54] LABS: Glucose - Point of Care 204 mg/dl (70-99)
[2024-01-30] MEDS: NOVOLOG FLEXPEN-LOW RESISTANCE 2 UNITS SC (17:35)
[2024-01-30] MEDS: LOVENOX 40 MG SC (17:36)
[2024-01-30] MEDS: BENICAR 40 MG PO (17:36)
[2024-01-30] MEDS: VITAMIN B-12 1000 MCG PO (17:36)
[2024-01-30] MEDS: LIPITOR 40 MG PO (17:36)
--- NOTE | 2024-01-30 20:00 | PTCARENOTE ---
rec`d pt at 1900 AAOx3. q4 vascular checks continued. pulses checked with previous nurse. bilateral pt/dp pulses present via doppler. SR to SB on monitor. afebrile. RA POX 97%. pt voids in urinal. rt groin site covered w/ aquacell. c/d/i w/ no
drainage. original post op. rt AC and rt FA flushed and patent. family at bedside. call becerril in reach safe environment maintained.
[2024-01-31] VITALS (14 sets, daily range): BP systolic 106–160; BP diastolic 52–83; BMI 21.8
--- NOTE | 2024-01-31 | PTCARENOTE ---
pt reassessed. no changes in pt assessment. call becerril in reach. spouse at bedside.
[2024-01-31 05:17] LABS: Hemoglobin 8.6 g/dL (13.0-18.0); Mean Corp Hgb Conc. 34.4 g/dL (33.0-37.0); Mean Corpuscular Hgb 31.9 pg (27.0-31.0); Mean Corpuscular Volume 92.6 fL (80.0-94.0); Mean Platelet Volume 10.5 fL (7.4-10.4); Platelet Count 212 10^3/uL (130-400); Red Cell Dist. Width 13.5 % (11.5-14.5); White Blood Cell Count 10.6 10^3/uL (4.8-10.8)
[2024-01-31 05:38] LABS: Blood Urea Nitrogen 28 mg/dl (9-20); Calcium 8.7 mg/dl (8.4-10.2); Carbon Dioxide 24 mmol/L (22-30); Chloride 107 mmol/L (98-107); Estimated Creatinine Clearance 55 ml/min; Glucose 105 mg/dl (70-99); Potassium 4.8 mmol/L (3.5-5.1); Sodium 140 mmol/L (135-145); eGFR > 60.00
[2024-01-31 07:33] LABS: Glucose - Point of Care 112 mg/dl (70-99)
[2024-01-31] MEDS: NOVOLOG FLEXPEN-LOW RESISTANCE SC (07:52)
[2024-01-31] MEDS: FLOMAX 0.4 MG PO (07:57)
[2024-01-31] MEDS: LOW STRENGTH ASPIRIN 81 MG PO (07:58)
[2024-01-31] MEDS: NORVASC 5 MG PO (07:58)
[2024-01-31] MEDS: TOPROL XL 25 MG PO (07:58)
[2024-01-31] MEDS: THERAGRAN 1 TABLET PO (07:58)
--- NOTE | 2024-01-31 08:10 | PTCARENOTE ---
pt assisted oob to chair. used walker, no complaints
--- NOTE | 2024-01-31 08:19 | W.PN.VS ---
Addendum entered and electronically signed by Dipesh Ansari MD 01/31/24 08:51:
Seen and examined with CASS Bonner. Agree with findings as noted below. Patient without significant complaints. Abdomen soft, nondistended, nontender. Right groin dressings clean dry and intact. Groin is flat. 2+ palpable popliteal pulse. Right
foot warm with 1+ PT pulse palpable, good Doppler signal. Plan/as discussed and noted below.
Original Note:
Today's Communication / Plan
-
Patient seen and evaluated at bedside with Dr. Dipesh Ansari, below plan reviewed with attending.
Assessment/Plan
-
Assessment: 73-year-old male POD #2 Right femoral endarterectomy with a pjns-lv-pjdk anastomosis of SFA/profunda and interposition femoral bypass
Plan:
Repeat a.m. labs within normal value for potassium
PT eval/treat, ambulate as tolerated
If patient tolerates ambulation and physical therapy recommends discharge to home will likely discharge later this afternoon
Subjective Data
-
Date of Service: January 31, 2024
Patient seen examined at bedside, offers no complaints. Reports minimal discomfort at right groin. Reported tolerating walking from bed to chair. Denies nausea, vomiting, fever, and chills.
Objective Data
-
Vital Signs
Temp Pulse Resp BP Pulse Ox
98.3 F 63 16 141/63 95
01/31/24 07:38 01/31/24 07:00 01/31/24 07:00 01/31/24 07:00 01/31/24 07:00
Intake and Output
01/30/24 01/31/24 02/01/24
06:59 06:59 06:59
Intake Total 1575 / 1655 160 / 160
Output Total 1220 / 1370 700 / 700
Balance 355 / 285 -540 / -540
Intake:
IV fluids (Total) 1575 / 1655 160 / 160
NSS 355 / 355
Nss 1,000 ml @ 80 mls/hr IV . 1120 / 1200 160 / 160
[id number] [facility] Rx#:[id number]
normosol 100 / 100
Output:
Urine, Montesinos 1220 / 1370 500 / 500
Urine, Voided 200 / 200
Lab Results
01/31/24 05:02
01/31/24 05:02
Calcium 8.7 mg/dl (8.4-10.2) 01/31/24 05:02
Magnesium 1.8 mg/dl (1.6-2.3) 01/30/24 10:46
Physical Exam
-
No apparent distress, resting in bed comfortably
No tachycardia
No dyspnea on room air
Abdomen soft, nontender, nondistended
Right groin dressing CDI, no evidence of hematoma, all surrounding compartments soft
Right foot warm, PT and DP Doppler signal
--- NOTE | 2024-01-31 08:28 | W.PN.INTV ---
Today's Communication / Plan
Recommendations
Up OOB as tolerated
Maintain SpO2 >90-94%
Encourage incentive spirometer
Patient is being prepared for discharge home today. Flocculator Operator/Pulmonary service will now sign off. Please reconsult if there are any additional questions/concerns, or if patient's respiratory status deteriorates.
Assessment
-
Assessment: 73-year-old male former tobacco smoker with a past medical history of carotid artery stenosis, PAD, hyperlipidemia, hypertension, left bundle branch block, DM type II and CKD stage III who presents with elective right femoral
endarterectomy with RLE bypass. Patient known to vascular surgery service with last visit on 01/07/[address] Ansari. Patient has known PAD. He has extensive atherosclerotic plaque diffusely in his lower extremities. His right common iliac artery
has a dissection like plaque that results in moderate stenosis. He also has significant stenosis in the right external iliac artery more distally. He does have more distal runoff disease as well. 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
ectatic left common iliac artery with almost dissection like finding seen on prior angiogram. Vascular intervention was discussed including right femoral endarterectomy. Risks and benefits of vascular intervention were discussed, and on 01/29/2024
he underwent right femoral endarterectomy with interposition bypass from common femoral artery to syndactylized profunda/superficial femoral artery. There were no immediate complications and he was transferred to the ICU for further care.
Flocculator Operator services consulted for additional management/recommendations.
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
Impression:
#PAD with debilitating right lower extremity claudication with severe femoral bifurcation plaque/occlusive disease s/p right femoral endarterectomy with interposition bypass from TEST PREPARER to syndactylized profunda/SFA (POD #2)
#Former heavy tobacco smoker (quit 20 years ago with >93-prec-ebkt history)
#Chronic anemia
#Metabolic acidosis with normal anion gap - resolved
#Hyperkalemia (mild) - resolved s/p IV insulin/D50 on 01/29/2024
#DM type II c/b hyperglycemia - hyperglycemia now resolved
#History of LBBB
#Carotid artery stenosis
#Hyperlipidemia
#Hypertension
Plan:
Postoperative surgical intensive care unit monitoring
Maintain SpO2 >90-94%
prn nebulized bronchodilators
Incentive spirometry encouraged 10x per hour for at least 4 hrs a day
Aspiration precautions
Pain control
Neuro and vascular checks per protocol
Maintain MAP>65
Replete electrolytes with K>4, Mg>2
Maintain euglycemia with goal BG 140-180
Vascular surgery following-correspondence and operative notes reviewed
Transfuse blood products as needed to keep Hb>7g/dL, and plt>50k (given post-operative status)
DVT prophylaxis
Early nutrition
Early mobilization
He does not qualify for lung cancer screening given he quit smoking >15 years ago.
Patient is being prepared for discharge home today. Flocculator Operator/Pulmonary service will now sign off. Thank you for allowing us to be involved in the care of this patient. Please reconsult if there are any additional questions/concerns, or if
patient's respiratory status deteriorates.
Total time spent today was 28 minutes for this encounter. Time includes reviewing laboratory test/imaging results, reviewing pertinent medical records, obtaining and reviewing medical history, performing an appropriate exam, ordering medications,
tests and procedures. Time also includes documentation of this encounter, coordinating patient care and communicating with other healthcare professionals. Total time does not include separately billed tests performed on this date of service.
Subjective Dataa
Subjective Data
Date of Service:
Date of Service: January 31, 2024
Chief Complaint: Flocculator Operator Follow Up
Subjective:
Patient seen and evaluated this morning. Patient's at bedside and all questions were answered. BP 106/63, heart rate 63, on room air saturating 95%. Up out of bed walking around with no complaints. He feels well, denying chest pain, SOB,
VELASQUEZ, abdominal pain, lower extremity weakness, numbness or tingling. He has been prepared for discharge home today.
Review of Systems
General: Other (Negative unless mentioned above)
Objective Data
Data Reviewed
Vital Signs / I&O / Oxygen:
Vital Signs
Temp Pulse Resp BP Pulse Ox
98.3 F 63 16 141/63 95
01/31/24 07:38 01/31/24 07:00 01/31/24 07:00 01/31/24 07:00 01/31/24 07:45
Intake and Output
01/30/24 01/31/24 02/01/24
06:59 06:59 06:59
Intake Total 1575 / 1655 160 / 160
Output Total 1220 / 1370 700 / 700
Balance 355 / 285 -540 / -540
SaO2 95
Physical Exam
General: Respiratory Distress (negative), Comfortable, Chills (negative) and Sweats (negative)
HEENT: Normocephalic and Anicteric
Cardiovascular: S1-S2 and Peripheral Edema (negative)
Respiratory: Wheeze (negative), Crackles (Bibasilar), Rhonchi (negative) and Non-Labored Respirations
GI: Soft, Non Distended, Non Tender and Normal Bowel Sounds
Neurology: AO x 3 and Tremors (negative)
Skin: Warm, Dry, Cyanosis (negative) and Jaundice (negative)
Labs/Micro/Reports
Lab Data
01/31/24 05:02
01/31/24 05:02
[2024-01-31] MEDS: NOVOLOG FLEXPEN-LOW RESISTANCE 1 UNITS SC (11:37)
[2024-01-31 11:39] LABS: Glucose - Point of Care 174 mg/dl (70-99)
--- NOTE | 2024-01-31 11:53 | PTCARENOTE ---
pt in bed without complaint. neurovascular unchanged. Aquacells intact
--- NOTE | 2024-01-31 13:48 | W.DS.TRANS ---
DC Summary - Bagman/Woman
-
Discharge Instructions:
Discharge Diagnosis/Procedures Right femoral endarterectomy with interposition
bypass from common femoral artery to
syndactylized profunda/superficial femoral
artery.
Diet As tolerated
Activity No strenuous activity
Driving Restrictions Not until seen by your Dr
Bathing Restrictions OK to Shower
Instructions:
Stand-Alone Forms: DC Instr - Vascular OR
Changes to Home Medications: No
Discharge Medications:
DC Medications w/original date entered in [employer]
Grape Seed 1 tab PO BID Supplement 12/17/23
amlodipine 10 mg tablet 5 mg PO DAILY Blood Pressure 12/17/23
ascorbic acid (vitamin C) 1,000 mg tablet (Vitamin C) 2 g PO TID Supplement 12/17/23
aspirin 81 mg chewable tablet 81 mg PO DAILY Blood Clot Prevention/Tx 12/17/23
calcium 600 mg (as carbonate)-vitamin D3 10 mcg (400 unit) tablet (Calcium 600 + D(3)) 1 tab PO DAILY Supplement 12/17/23
cyanocobalamin (vitamin B-12) 1,000 mcg capsule 1,000 mcg PO .AFTERNOON Supplement 12/17/23
jeswhfwuzzd-fez-hejmxunyh-vitC capsule (Glucosamine Complex-MSM capsule) 1 cap PO BID Supplement 12/17/23
lutein 1 tab PO DAILY Supplement 12/17/23
naxroxlpzdny-yvzokyyg-lyahtk tablet 1 tab PO DAILY Supplement 12/17/23
olmesartan 40 mg tablet 40 mg PO QPM Blood Pressure 12/17/23
tamsulosin 0.4 mg capsule 0.4 mg PO DAILY Urinary Issue 12/17/23
atorvastatin 40 mg tablet 40 mg PO .AFTERNOON High Cholesterol 12/19/23
metoprolol succinate 25 mg capsule sprinkle, ext. release 24 hr 25 mg PO DAILY Blood Pressure 12/19/23
coenzyme Q10 100 mg capsule (CoQ-10) 200 mg PO DAILY Supplement 01/29/24
metformin 500 mg tablet,extended release 24 hr 500 mg PO QPM Diabetes 01/29/24
Home Medication Changes
Pending Results: No
--- NOTE | 2024-01-31 14:04 | CM ---
CM following re: discharge planning.
Reviewed pt's chart, met with pt. Pt's spouse, daughter and son in law at bedside.
Discharge order noted. Both [pt and his family are aware, expressed their agreement. IMM reviewed, placed on chart, pt has a copy.
PT and OT evaluations noted - home health recommended.
Pt's daughter stated that pt is known to [facility]. A referral to [facility] made: RN, PT, OT.
Please fax discharge instructions to [facility] at [phone]
D/C plan: home with [facility] and family support. Family to transport
== END 2024-01-31 15:00 | disposition home health service (06) | DRG 253 ==
LOC: ICU 08:04
PROVIDERS: Nurse Practitioner; Nurse Practitioner Acute Care; Nurse Practitioner Family; ADMITTING PHYSICIAN Surgery Vascular Surgery; CONSULT PHYSICIAN Internal Medicine Critical Care Medicine; FAMILY PHYSICIAN Internal Medicine
PROC: 041K0ZH Bypass Right Femoral Artery to Right Femoral Artery, Open Approach (ICD-10-PCS; 2024-01-29)
PROC: 04CK0ZZ Extirpation of Matter from Right Femoral Artery, Open Approach (ICD-10-PCS; 2024-01-29)
DX: I70.211 Atherosclerosis of native arteries of extremities with intermittent claudication, right leg (principal); E87.20 Acidosis, unspecified; E11.65 Type 2 diabetes mellitus with hyperglycemia; E11.51 Type 2 diabetes mellitus with diabetic peripheral angiopathy without gangrene; I44.7 Left bundle-branch block, unspecified; I12.9 Hypertensive chronic kidney disease with stage 1 through stage 4 chronic kidney disease, or unspecified chronic kidney disease; N18.30 Chronic kidney disease, stage 3 unspecified; E78.5 Hyperlipidemia, unspecified; I65.29 Occlusion and stenosis of unspecified carotid artery; E11.22 Type 2 diabetes mellitus with diabetic chronic kidney disease; E87.5 Hyperkalemia; E11.319 Type 2 diabetes mellitus with unspecified diabetic retinopathy without macular edema; Z87.891 Personal history of nicotine dependence
CPT/HCPCS: 88304; 88311; 35558; 36415; 71046; 80048; 82962; 83036; 83735; 84484; 85025; 85027; 85610; 85730; 86850; 86900; 86901; 93005; 97162

== ENCOUNTER → 2024-03-16 07:35 | Outpatient (REF) | payer MEDICARE, OTHER, SELFPAY | LOC: RAD 07:35 | PROVIDERS: ATTENDING PHYSICIAN Registered Nurse; FAMILY PHYSICIAN Internal Medicine | DX: I73.9 Peripheral vascular disease, unspecified (principal); Z95.828 Presence of other vascular implants and grafts; Z48.89 Encounter for other specified surgical aftercare | CPT/HCPCS: 93922; 93925 ==

== ENCOUNTER → 2024-03-24 16:26 | Outpatient (REF) | payer MEDICARE, OTHER, SELFPAY | LOC: RAD 16:26 | PROVIDERS: ATTENDING PHYSICIAN Surgery Vascular Surgery; FAMILY PHYSICIAN Internal Medicine | DX: I73.9 Peripheral vascular disease, unspecified (principal) | CPT/HCPCS: 75635; Q9967 ==

== ENCOUNTER → 2024-11-17 09:44 | Outpatient (REF) | payer MEDICARE, OTHER, SELFPAY | LOC: RAD 09:44 | PROVIDERS: ATTENDING PHYSICIAN Surgery Vascular Surgery; FAMILY PHYSICIAN Internal Medicine | DX: I73.9 Peripheral vascular disease, unspecified (principal) | CPT/HCPCS: 93922; 93925 ==

== ENCOUNTER → 2024-11-30 07:01 | Outpatient (REF) | payer MEDICARE, OTHER, SELFPAY | LOC: RAD 07:01 | PROVIDERS: ATTENDING PHYSICIAN Registered Nurse; FAMILY PHYSICIAN Internal Medicine | DX: I73.9 Peripheral vascular disease, unspecified (principal) | CPT/HCPCS: 75635; Q9967 ==

== ENCOUNTER 2024-12-23 08:48 | Day surgery (SDC) | payer MEDICARE, OTHER, SELFPAY ==
[2024-12-23] VITALS (18 sets, daily range): BP systolic 158–188; BP diastolic 56–75; BMI 21.5
[2024-12-23 09:06] LABS: Hematocrit 33.7 % (39.0-52.0); Hemoglobin 11.1 g/dL (13.0-18.0); Mean Corp Hgb Conc. 32.9 g/dL (33.0-37.0); Mean Corpuscular Volume 99.4 fL (80.0-94.0); Platelet Count 115 10^3/uL (130-400); Red Cell Dist. Width 13.7 % (11.5-14.5)
[2024-12-23 09:26] LABS: APTT 27.9 Sec (23.4-35.0); INR 1.03; PT 14.0 Sec (11.4-14.6)
[2024-12-23 09:27] LABS: Glucose - Point of Care 75 mg/dl (70-99)
[2024-12-23 09:30] LABS: Blood Urea Nitrogen 25 mg/dl (9-20); Calcium 9.3 mg/dl (8.4-10.2); Carbon Dioxide 27 mmol/L (22-30); Chloride 105 mmol/L (98-107); Estimated Creatinine Clearance 44 ml/min; Glucose 103 mg/dl (70-99); Potassium 4.1 mmol/L (3.5-5.1); Sodium 138 mmol/L (135-145); eGFR 57.65
--- NOTE | 2024-12-23 12:14 | W.SUR.POST ---
Surgical Immediate Post Op
Note
Pre Op Diagnosis: Peripheral arterial disease
Post Op Diagnosis: Peripheral arterial disease
Procedure Performed: Bilateral lower extremity angiogram, aortogram, stent to bilateral common and external iliac arteries, right distal anastomosis of bypass/SFA angioplasty and stent
Primary Surgeon: Dipesh Ansari M.D.
Secondary Surgeons: N/A
Anesthesia: MAC
Estimated Blood Loss: 2 mL
Fluids: See anesthesia flowsheet
Drains/Shunts: N/A
Specimens/Cultures: N/A
Doppler/Duplex/Angio (Y/N): Y
Complications: None
Operative Findings: Successful endovascular invention for
--- NOTE | 2024-12-23 12:47 | OR.RPT ---
Operative Report
Operative Report
PROCEDURE DATE: 12/23/2024
Preoperative diagnosis:
1. Chronic limb threatening ischemia left lower extremity.
2. 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
3. Severe multilevel peripheral arterial disease including aortoiliac disease.
Postoperative diagnosis: Same
Procedure:
1. Duplex assisted cannulation of left common femoral artery.
2. Aortogram and pelvic angiogram.
3. Left common iliac artery angioplasty and stent placement with [place] VBX 8 mm x 39 mm balloon mounted covered stent, post angioplastied with a 10 mm balloon.
4. Left external iliac artery balloon angioplasty and stent placement with Cook Zilver PTX 7 mm x 80 mm and overlapping 7 mm x 40 mm self-expanding drug-eluting stents.
5. Left lower extremity arteriogram.
6. Balloon angioplasty of severe distal anastomotic stenosis right femoral interposition bypass graft with 4 mm standard angioplasty balloon, 4 mm drug-coated angioplasty balloon (Bard Lutonix).
7. Right common iliac artery angioplasty and stent placement with [place] VBX 8 mm x 29 mm balloon mounted covered stent, post angioplastied with a 10 mm balloon.
8. Right external iliac artery balloon angioplasty and stent placement with Cook Zilver PTX 8 mm x 60 mm and overlapping 8 mm x 40 mm self-expanding drug-eluting stents.
9. Supervision and interpretation.
Surgeon: Elan
Pony Ride Operator: None
Complications: None
Anesthesia: Local, sedation
Fluoroscopy:
20.2 min
87 mGy
16.80 gy.cm2
Indications for procedure:
Chronic limb-threatening ischemia left foot with left first toe wound. Severe peripheral arterial disease bilaterally. Prior history of right femoral endarterectomy requiring interposition bypass graft now with distal anastomotic severe stenosis
(distal anastomosis at femoral bifurcation which was recreated surgically). Risk/benefits/alternatives of attempted endovascular management of all these problems was fully discussed. Patient understood all and wished to proceed.
Description of procedure:
Patient was identified, brought to the operating room. Placed on the table in the supine position. After the adequate administration of anesthesia, the patient was prepped and draped in the standard surgical fashion. A standard preoperative
timeout was undertaken and everybody was in agreement with the plan.
The left common femoral artery was accessed with a micropuncture kit under direct duplex ultrasound guidance. A 5 Jordanian sheath was then advanced over a 0.035 inch wire, and a interiano's hook catheter was advanced into the abdominal aorta.
Aortogram and pelvic angiogram was obtained. Findings as follows:
Infrarenal aorta: Patent with eccentric significant plaque, but no stenosis.
Right common iliac artery: Patent with high-grade stenosis beginning about a centimeter beyond the origin and extending almost to the iliac bifurcation, relatively short common iliac artery.
Right external iliac artery: Patent with luminal irregularities, at least moderate to high-grade stenoses in the mid to distal segments.
Left common iliac artery: Patent with mid segment severe stenosis, irregular plaque.
Left external iliac artery: Patent with moderate to high-grade mid to distal stenoses.
At this point I exchanged out the interiano's a catheter over a 0.035 inch Storq wire. I upsized to a 7 Jordanian sheath. The patient was given an appropriate dose of heparin. Next I placed a [place] VBX 8 mm x 39 mm (large) covered stent into the
proximal common iliac artery encompassing the severe stenosis. This was ballooned into place in the standard fashion. I then post angioplastied with a 10 mm balloon. Completion angiogram demonstrated an excellent result with excellent flow
through the common iliac and into the iliac bifurcation with no residual stenosis. At this point, I then better image to the external iliac artery identifying proximal external iliac artery with moderate to high-grade stenosis and then mid segment
stenosis. I therefore measured the stenosis using the measurement tools of the imaging software. I therefore then used a 7 mm x 8 cm Cook Zilver PTX drug-eluting self-expanding stent. However this ended up being a little bit short of encompassing
the more distal stenosis. However I deployed it and then post angioplastied with a 7 mm angioplasty balloon. Completion angiogram demonstrated excellent result in the stented segment but as noted a residual stenosis just beyond the stent.
Therefore extended with an overlapping 7 mm x 4 cm Zilver PTX stent. This was also post angioplastied with a 7 mm balloon. Completion angiogram now demonstrated excellent result. The entire left iliac system looks good with no residual stenosis.
I now performed a left lower extremity diagnostic runoff angiography. This demonstrated irregular plaque and maybe mild stenosis in the left common femoral artery. Profunda femoris origin was severely stenotic. The profunda had diffuse luminal
irregularity/atherosclerotic plaque. The proximal SFA into the mid segment was patent without severe stenosis. There is popcorn-like plaque in the midsegment causing potentially varying degrees of stenosis but no focal occlusion until the
popliteal artery above the knee. That was occluded completely. The origin of the tibials were also occluded. There is reconstituted flow and a single-vessel posterior tibial runoff relatively proximally in the calf. This ran off nicely to the
foot. At this point I was satisfied that I identified a distal target should the patient need a bypass.
Now, using a interiano's a catheter and a floppy angled hydrophilic wire, the right common femoral artery was cannulated and then a glide catheter was advanced. Right lower extremity limited arteriogram was obtained (CT angiogram had been performed
prior at which time I identified the problem).
This demonstrated a patent common femoral artery and proximal anastomosis of the common femoral artery to the interposition bypass graft. The bypass graft was nicely patent although the distal anastomotic area over the course of about 2 cm had a
severe string-like stenosis/near occlusion. Profunda origin was not seen (I had surgically recreated the bifurcation at the time of the initial bypass). Now using a floppy of hydrophilic wire and a glide catheter, I was able to with great
difficulty traverse through the area of severe stenosis. I difficulty passing the wire but finally was able to do so and then advanced the catheter. I then exchanged for a [place] wire and an up and over 7 Jordanian sheath. With the sheath access in
place I then exchanged for a 0.018 inch wire and then performed balloon angioplasty of the severe stenosis with a 4 mm angioplasty balloon. Completion angiogram now demonstrated good result with marked improvement in the stenosis and now the
profunda origin could not nicely be seen. However given some mild recalcitrant stenosis and my concern given that this was a surgical bypass graft, I used a drug-coated balloon. I therefore then used a Bard Lutonix 4 mm x 4 cm drug-coated balloon
and performed prolonged angioplasty standard technique. Completion angiogram now demonstrated excellent result. Still some mild luminal irregularity but no significant residual stenosis. I now withdrew my sheath to the right proximal common iliac
artery confirming the common and external iliac artery stenoses on the right side. I then maintaining a 0.035 inch wire distally placed an 8 mm x 29 mm [place] VBX covered stent in the proximal common iliac artery careful to not cover the iliac
bifurcation. I then post angioplastied this with a 10 mm balloon. Completion angiogram demonstrated excellent result with resolution of the stenosis in the common iliac artery, but there is vasospasm/severe stenosis throughout the external iliac
artery now. Fortunately had maintained wire access. Therefore I now used a 8 mm x 60 mm Zilver PTX stent with an additional overlapping 8 mm x 40 mm Zilver PTX stent (we did not have 80 mm length which would have been ideal). These were post
angioplastied with a 7 mm angioplasty balloon. Completion angiogram now demonstrated excellent result with no residual stenosis throughout the iliac system. I also confirmed no evidence of distal embolization or issue with the bypass graft. At
this point the sheath was withdrawn to the left external iliac artery again confirming angiographically good puncture in the left common femoral artery. Wires and catheters were withdrawn after exchanging for a short 7 Jordanian sheath. Protamine was
given to reverse the heparin. The sheath was withdrawn in the recovery room and manual pressure applied. Hemostasis was fully achieved. The patient tolerated the procedure well. Upon completion he had excellent 2+ palpable strong femoral pulses
bilaterally with good dopplerable PT signals bilaterally.
[2024-12-23 13:16] LABS: Glucose - Point of Care 142 mg/dl (70-99)
[2024-12-23] MEDS: LOW STRENGTH ASPIRIN 81 MG PO (14:06)
[2024-12-23] MEDS: PLAVIX 300 MG PO (14:07)
[2024-12-23] MEDS: NSS 1000 IV (14:11)
[2024-12-23] MEDS: TOPROL XL 25 MG PO (14:15)
--- NOTE | 2024-12-23 14:50 | PTCARENOTE ---
Patient BP elevated (SBP 170-180). Notified RAIL TRACK MAINTAINER and orders given.
[2024-12-23] MEDS: BENICAR 20 MG PO (17:09)
[2024-12-23] MEDS: APRESOLINE 5 MG IV (17:09)
--- NOTE | 2024-12-23 18:29 | PTCARENOTE ---
Instructed patient to monitor BP at home. Patient states BP normally runs systolicly in 130's. Has been high post op (SBP 170-180'S) Instucted patient to follow up with MD if BP remains high at home.
== END 2024-12-23 18:31 | disposition home or self-care (01) ==
LOC: CATH 08:48
PROVIDERS: ATTENDING PHYSICIAN Surgery Vascular Surgery; OTHER PHYSICIAN Internal Medicine Cardiovascular Disease; PRIMARYCARE PHYSICIAN Internal Medicine
DX: I70.222 Atherosclerosis of native arteries of extremities with rest pain, left leg (principal); I70.701 Unspecified atherosclerosis of other type of bypass graft(s) of the extremities, right leg; I44.7 Left bundle-branch block, unspecified; T82.858A Stenosis of other vascular prosthetic devices, implants and grafts, initial encounter; Y84.9 Medical procedure, unspecified as the cause of abnormal reaction of the patient, or of later complication, without mention of misadventure at the time of the procedure; Z79.899 Other long term (current) drug therapy; I12.9 Hypertensive chronic kidney disease with stage 1 through stage 4 chronic kidney disease, or unspecified chronic kidney disease; E11.22 Type 2 diabetes mellitus with diabetic chronic kidney disease; N18.30 Chronic kidney disease, stage 3 unspecified; E78.5 Hyperlipidemia, unspecified
CPT/HCPCS: 37223; 37221; 37226; 75630; 80048; 82962; 85027; 85610; 85730; 86850; 86900; 86901; 93005; C1725; C1769; C1874; C1887; C1894; C2623; Q9967

== ENCOUNTER → 2025-01-25 08:24 | Outpatient (REF) | payer MEDICARE, OTHER, SELFPAY | LOC: RAD 08:24 | PROVIDERS: ATTENDING PHYSICIAN Surgery Vascular Surgery; FAMILY PHYSICIAN Internal Medicine | DX: I73.9 Peripheral vascular disease, unspecified (principal) | CPT/HCPCS: 93922; 93925; 93978 ==

== ENCOUNTER 2025-03-11 08:55 | Inpatient (IN) | payer MEDICARE, OTHER, SELFPAY ==
[2025-03-08 09:52] VITALS: BMI 23.0
[2025-03-08 10:32] LABS: Hematocrit 38.0 % (39.0-52.0); Hemoglobin 12.3 g/dL (13.0-18.0); Mean Corp Hgb Conc. 32.4 g/dL (33.0-37.0); Mean Corpuscular Volume 95.0 fL (80.0-94.0); Nucleated Red Blood Cells % 0 % (-); Platelet Count 111 10^3/uL (130-400); Red Cell Dist. Width 13.2 % (11.5-14.5)
[2025-03-08 10:38] LABS: INR 1.13; PT 14.6 Sec (11.4-14.6)
[2025-03-08 10:39] LABS: APTT 28.3 Sec (23.4-35.0)
[2025-03-08 10:55] LABS: Blood Urea Nitrogen 32 mg/dl (9-20); Calcium 9.2 mg/dl (8.4-10.2); Carbon Dioxide 29 mmol/L (22-30); Chloride 102 mmol/L (98-107); Estimated Creatinine Clearance 40 ml/min; Glucose 114 mg/dl (70-99); Potassium 5.2 mmol/L (3.5-5.1); Sodium 135 mmol/L (135-145); eGFR 48.55
[2025-03-11] VITALS (26 sets, daily range): BP systolic 82–159; BP diastolic 48–66; BMI 23.2
[2025-03-11] MEDS: PERIDEX 0.12% ORAL RINSE 15 ML PO (09:51)
[2025-03-11] MEDS: BACTROBAN NASAL 1 GRAM NASAL (09:51)
[2025-03-11] MEDS: NSS 500 IV (09:53)
[2025-03-11 10:09] LABS: Blood Urea Nitrogen 36 mg/dl (9-20); Calcium 9.3 mg/dl (8.4-10.2); Carbon Dioxide 29 mmol/L (22-30); Chloride 103 mmol/L (98-107); Estimated Creatinine Clearance 40 ml/min; Glucose 114 mg/dl (70-99); Potassium 4.8 mmol/L (3.5-5.1); Sodium 134 mmol/L (135-145); eGFR 48.55
[2025-03-11 16:02] LABS: Glucose - Point of Care 176 mg/dl (70-99)
[2025-03-11 16:25] LABS: Hematocrit 32.4 % (39.0-52.0); Hemoglobin 10.9 g/dL (13.0-18.0); Mean Corp Hgb Conc. 33.6 g/dL (33.0-37.0); Mean Corpuscular Volume 91.0 fL (80.0-94.0); Red Cell Dist. Width 13.3 % (11.5-14.5)
[2025-03-11 16:32] LABS: Blood Urea Nitrogen 33 mg/dl (9-20); Calcium 7.9 mg/dl (8.4-10.2); Carbon Dioxide 22 mmol/L (22-30); Chloride 107 mmol/L (98-107); Estimated Creatinine Clearance 47 ml/min; Glucose 159 mg/dl (70-99); Potassium 4.5 mmol/L (3.5-5.1); Sodium 134 mmol/L (135-145); eGFR 57.65
--- NOTE | 2025-03-11 16:42 | W.SUR.POST ---
Surgical Immediate Post Op
Note
Pre Op Diagnosis: Peripheral arterial disease
Post Op Diagnosis: Peripheral arterial disease
Procedure Performed: Left lower extremity arterial bypass SFA to PT with ipsilateral nonreversed greater saphenous vein
Primary Surgeon: Dipesh Ansari M.D.
producer assistant: Halie Diallo CNP
Anesthesia: GETA
Estimated Blood Loss: 50 ml
Fluids: See anesthesia flowsheets
Drains/Shunts: N/A
Specimens/Cultures: None
Doppler/Duplex/Angio (Y/N): Y, Doppler
Complications: None
Operative Findings: Postoperatively palpable PT pulse
--- NOTE | 2025-03-11 16:44 | OR.RPT ---
Operative Report
Operative Report
PROCEDURE DATE: 03/11/2025
Preoperative diagnosis: Chronic limb-threatening ischemia left lower extremity
Postoperative diagnosis: Same
Procedure: Left superficial femoral artery to posterior tibial artery bypass with ipsilateral nonreversed greater saphenous vein conduit.
Surgeon: Elan
Clerical Assigner: CASS Diallo, required for all aspects of procedure including assistance with traction/countertraction, following a suture line, assistance with closure.
Complications: None
Anesthesia: General
Indications for procedure:
Chronic limb threatening ischemia with ischemic rest pain and tissue loss left foot. Risk/benefits/alternatives of revascularization fully discussed. Patient understood all wished to proceed.
Description of procedure:
Patient was identified brought to the operating room placed on the table in supine position. After the adequate administration of anesthesia he was prepped and draped in the standard surgical fashion. A standard preoperative timeout was undertaken
and everybody was in agreement the plan. A longitudinal incision was made in the proximal anterior thigh that was carried through skin subcutaneous tissue. The sartorius muscle was reflected laterally and the superficial femoral artery was
palpated and carefully dissected away from surrounding structures taking great care to avoid injury to structures. Vessel loop passed around it proximally distally. There is noted to be calcified but reasonably soft clamp and so.
Now a longitudinal incision was made in the medial left mid calf about 1 fingerbreadth inferior to the tibia. This was carried through skin subcutaneous tissue with the electrocautery. Crural fascia was incised with the electrocautery. The soleus
muscle was then divided near its insertion on the tibia. The deep posterior compartment was then entered. The posterior tibial vein and then artery were identified. The vein was noted to be soft. It was carefully dissected on its anterior
surface and laterally and medially for a suitable segment. Doppler confirmed that it was patent.
Now of the greater saphenous vein was exposed. This was done through thigh incisions (and a portion through the posterior tibial artery exposure site incision). Skip incisions were performed. Greater saphenous vein was reasonable proximally but
in the mid thigh and the rest of it it seems small. However I felt that it likely would distend and therefore I felt it was worth exposing, and in addition I really wish to avoid any prosthetic given distal target of the posterior tibial artery.
The vein was fully mobilized out of its bed. Any branches were ligated between silk ties and clips and then divided. Once we fully mobilized the suitable segment, it was ligated distally with a heavy silk tie and a clip. Proximally just
peripheral to the saphenofemoral junction it was suture-ligated with a silk suture ligature and a clip and then transected. I transected distally as well now. The vein was distended under heparinized saline. It actually distended reasonably well.
It looked like a suitable vein.
At this point a Pool tunneler was used to create a subsartorial tunnel. A subfascial tunnel was made between the distal saphenectomy incision near the knee and the posterior tibial artery exposure site. Once tunnels were created, the patient
was given an appropriate dose of IV heparin. Once the circulated, the superficial femoral artery was clamped proximally and distally. An arteriotomy was made with an 11 blade and extended using Johnston scissor. There is mild to moderate eccentric
calcified plaque but not severely hardened. However the lumen was nicely patent. The vein was then spatulated maintaining it in a nonreversed fashion. An end to side anastomosis was then fashioned using a running 6-0 Prolene suture. Suture line
was completed and tied down. I then released the clamps on the superficial femoral artery. There is now pulsatile flow into the vein graft. A Ricardo valvulotome was then used to fully valvulotomize the vein bypass. This was run through twice to
confirm no retained valves. There is now excellent pulsatile flow. The anterior surface was marked under distention to avoid any kinking or twisting as it was tunneled. It was then passed through the tunnel carefully. We confirmed that it was
not kinked or twisted. Good pulsatile flow was still noted. A bulldog clamp was placed on the vein graft. The posterior tibial artery was reexposed. Yasargil clips were placed on the posterior tibial artery proximally and distally. An
arteriotomy was made with a [place] blade and extended using a Johnston scissor. The lumen seemed reasonable with no significant plaque in the artery wall, though it was a relatively small artery. The vein was then trimmed and spatulated distally.
And an end-to-side anastomosis was fashioned between the vein bypass graft and the posterior tibial artery using a running 7-0 Prolene suture. Prior to completing and tying down the suture line the chipewwa artery was backbled, and the bypass graft
was flushed. Heparinized saline was then flushed. We then completed and tied down my suture line. Next we released proximal Yasargil clip on the posterior tibial artery, and the bulldog clamp on the vein graft. Finally the distal Yasargil clip
was removed. There was excellent pulsatile flow in the posterior tibial artery at this point. There is good Doppler signal confirming good graft dependent flow. There is a good Doppler signal as well as a palpable pulse at the posterior tibial
artery at the ankle as well. These were also graft dependent. Some papaverine was locally placed to combat any potential vasospasm on the posterior tibial artery distal to the anastomosis. All incision sites were then meticulously inspected and
hemostasis was meticulously achieved. All sites were irrigated. We then closed all sites in layers using layers of Vicryl suture followed by 4-0 Monocryl running subcuticular suture. Dermabond and dressings were applied. The patient tolerated
the procedure well. As noted upon completion he had palpable posterior tibial pulse in the left foot. All sponge, needle, instrument counts were correct at the end of the case. The patient was transported to recovery room in stable condition.
[2025-03-11 18:02] LABS: Platelet Count 84 10^3/uL (130-400)
--- NOTE | 2025-03-11 18:15 | PTCARENOTE ---
Pt arrived to ICU approx 1700, report received from [facility]. Pt awake and alert. HR SR, pt with R rad [place] which was zero'd, running approx 25 sys > than cuff BP. L lower leg with aqua cell and and carmencita wrap intact. L PT, R PT, and L DP all present
with doppler, R PT not present with doppler. Dr Ansari to room and aware. Is aware and OK with no R DP pulse, and only concerned if pt loses his PT pulses. Complete CHG and mouth care done. Lobes clear throughout on 10L mask, which was switched over to
R/A 1745. O2 sat on R/A is 94%. Pt taking just sips of milkshake and water. Montesinos cath draining yellow urine. Pt and daughter to room and updated. Pt denies any pain at this time.
[2025-03-11] MEDS: HEPARIN 5000 UNITS SC (19:33)
[2025-03-11] MEDS: NSS 1000 IV (19:33)
[2025-03-11] MEDS: DILAUDID 0.5 MG IV ×2 (19:34→22:35)
[2025-03-11] MEDS: ROXICODONE 5 MG PO (21:32)
--- NOTE | 2025-03-11 21:42 | PTCARENOTE ---
Patient c/o pain to LLE 7-8/10 at start of shift. PRN dilaudid administered as ordered. Minimal pain relief noted at this time. PRN Janelle administered per order a short time ago. Will monitor for comfort.
Patient continues to have pulses positive with Doppler to L PT, L DP, R PT, remains absent to R DP, aware. AAO x3, affect pleasant. remains at bedside. Assessment as documented. Lungs cta throughout, pox 95% on ra. NSS at 80ml/hr continues
to right ac 18g, left fa 20g patent, intact. Call becerril within reach. Will continue to monitor patient closely.
--- NOTE | 2025-03-11 23:17 | PTCARENOTE ---
Discussed pain 8-12/16 with Amber RUSSO. 1x order placed for Dilaudid 0.5mg, medication administered as ordered. Patient verbalizes pain relief, currently 08/15. Will continue to monitor patient closely.
--- NOTE | 2025-03-11 23:22 | PTCARENOTE ---
Patient SBP is hovering from 98-104 with the A-line. SBP is 98 on BP cuff. Patient had been having pain throughout the shift ranging from 6-9/10 to left leg, finally has some pain relief and is asleep. Vascular surgery inspector packer glass container notified and is aware.
NNO noted. Will continue to monitor patient closely.
[2025-03-12] VITALS (22 sets, daily range): BP systolic 88–142; BP diastolic 44–77; BMI 23.3
--- NOTE | 2025-03-12 00:37 | PTCARENOTE ---
Patients SBP in the 70's per right radial a-line and bp cuff. RN woke patient who denies pain, denies symptoms. Vascular ironworker apprentice notified. Patients SBP increased to 100's-110's. Will continue to monitor.
[2025-03-12] MEDS: TYLENOL 650 MG PO (01:19)
[2025-03-12 03:34] LABS: Hematocrit 28.2 % (39.0-52.0); Hemoglobin 9.5 g/dL (13.0-18.0); Mean Corp Hgb Conc. 33.7 g/dL (33.0-37.0); Mean Corpuscular Volume 93.4 fL (80.0-94.0); Platelet Count 96 10^3/uL (130-400); Red Cell Dist. Width 13.4 % (11.5-14.5)
[2025-03-12 03:40] LABS: APTT 30.3 Sec (23.4-35.0); INR 1.24; PT 15.4 Sec (11.4-14.6)
[2025-03-12 03:55] LABS: Blood Urea Nitrogen 34 mg/dl (9-20); Calcium 8.1 mg/dl (8.4-10.2); Carbon Dioxide 22 mmol/L (22-30); Chloride 111 mmol/L (98-107); Estimated Creatinine Clearance 43 ml/min; Glucose 150 mg/dl (70-99); Potassium 5.1 mmol/L (3.5-5.1); Sodium 134 mmol/L (135-145); eGFR 52.74
[2025-03-12] MEDS: DILAUDID 0.5 MG IV (04:02)
[2025-03-12] MEDS: NSS 1000 IV (04:04)
--- NOTE | 2025-03-12 06:23 | PTCARENOTE ---
Patient c/o increased pain a short time ago. PRN medication administered with positive results. Assessment otherwise unchanged.
--- NOTE | 2025-03-12 07:36 | CON.INTV ---
Consultation
Consultation Request
Date/Time Consultation Requested: 03/11/25
Date/Time Consultation Performed: 03/12/25
Performing Provider: Liz
Reason for Consultation: Vasc postop
Medical History
-
History of Present Illness:
74-year-old male with prior history of severe PAD, former smoker, diabetes, hypertension, chronic kidney disease presenting for elective vascular surgery. On most recent CT scan as an outpatient he has demonstrated stenosis on the right side at the
distal anastomosis of the short interposition femoral bypass (prior history of RLE bypass in 2023) complicated by worsening left-sided disease throughout. Underwent left superficial femoral artery to posterior tibial artery bypass 03/11/2025 and
postoperatively admitted to ICU for further management.
Past Medical History
Past Medical History: Other (see list below)
Social History
Tobacco: Former Smoker
Alcohol: None
Drug: None
Family History
Family History: Reviewed & Not Pertinent
Allergies / Home Medications
Allergies
Allergy/AdvReac Type Severity Reaction Status Date / Time
No Known Allergies Allergy Verified 03/11/25 09:10
Home Medications
�Medication �Instructions �Recorded �Confirmed �Last Taken �Type
olmesartan 40 mg tablet 20 mg PO DAILY Blood Pressure 12/17/23 03/11/25 03/10/25 History
tamsulosin 0.4 mg capsule 0.4 mg PO DAILY Urinary Issue 12/17/23 03/11/25 03/10/25 08:00 History
metoprolol succinate 25 mg capsule 25 mg PO DAILY Blood Pressure 12/19/23 03/11/25 03/10/25 08:00 History
sprinkle, ext. release 24 hr
acetaminophen 325 mg tablet 650 mg PO Q4H PRN pain 12/18/24 03/11/25 Unknown History
(Tylenol)
rosuvastatin 20 mg tablet 20 mg PO DAILY High Cholesterol 12/18/24 03/11/25 03/10/25 08:00 History
aspirin 81 mg chewable tablet 81 mg PO DAILY #90 tabs 12/23/24 03/11/25 03/10/25 08:00 Rx
clopidogrel 75 mg tablet 75 mg PO DAILY #90 tabs 12/23/24 03/11/25 03/10/25 08:00 Rx
duloxetine 60 mg capsule,delayed 60 mg PO DAILY Mental 03/05/25 03/11/25 03/10/25 08:00 History
release Health/Anxiety
levocetirizine 5 mg tablet 5 mg PO DAILY PRN congestion 03/05/25 03/11/25 Unknown History
polyethylene glycol 3350 17 4 g PO DAILY Constipation 03/11/25 03/11/25 03/10/25 08:00 History
gram/dose oral powder (Miralax)
Review of Systems
-
History Source: Patient
All other systems: Negative unless noted
Vitals / Labs / Diagnostic Testing
Vital Signs
Temp Pulse Resp BP Pulse Ox
98.8 F 82 17 100/50 95
03/12/25 04:20 03/12/25 06:15 03/12/25 06:15 03/12/25 06:00 03/12/25 06:15
Lab Data
03/12/25 03:17
03/12/25 03:17
Laboratory Results
03/12/25
03:17
PT 15.4 H
INR 1.24
APTT 30.3
Diagnostic Testing:
Physical Exam
-
HEENT: Normocephalic, Anicteric and Moist Mucous Membranes
Cardiovascular: S1/S2 and Regular Rhythm
Respiratory: Clear and Non-Labored Respirations
GI: Soft, Non Distended and Non Tender
Neurology: Awake, Alert, Oriented and No Motor Deficits
Skin: Warm, Dry and Other (LLE wound)
General: Comfortable, Good Appetite and Other (NAD)
Assessment
-
74-year-old male with prior history of severe PAD, former smoker, diabetes, hypertension, chronic kidney disease presenting for elective vascular surgery. On most recent CT scan as an outpatient he has demonstrated stenosis on the right side at the
distal anastomosis of the short interposition femoral bypass (prior history of RLE bypass in 2023) complicated by worsening left-sided disease throughout. Underwent left superficial femoral artery to posterior tibial artery bypass 03/11/2025 and
postoperatively admitted to ICU for further management.
Severe PAD s/p Left lower extremity arterial bypass SFA to PT with ipsilateral nonreversed greater saphenous vein 03/11/25
Poorly healing left foot wound
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
PAD with severe RLE claudication with severe femoral bifurcation plaque/occlusive disease s/p right FEA with interposition bypass from NEUROPSYCHOLOGY DIRECTOR to syndactylized profunda/SFA (01/29/24)
Former heavy tobacco smoker (quit 20 years ago with >[id number] history)
Chronic anemia
Metabolic acidosis with normal anion gap - resolved
Hyperkalemia (mild) - resolved s/p IV insulin/D50 on 01/29/2024
DM type II c/b hyperglycemia - hyperglycemia now resolved
History of LBBB
Carotid artery stenosis
Hyperlipidemia
Hypertension
Plan
Patient is s/p left lower extremity bypass by vascular surgery service, POD #1
Continue observation following procedure
Follow neurovascular checks per protocol
ASA, betablocker and statin on board
Follow BP monitoring and parameters as set by primary team
Cardiac history noted--HTN, PAD, carotid dz
Monitor on telemetry
Pain control per protocol
RASS goal 0
No prior history of pulmonary disease, smoking hx includes 70PYs
Certainly at risk -- can refer for OP testing if symptoms arise/quit >20 years ago, not indicated for LDCTs
CXR reviewed indicating no acute disease
No prior PFTs for review
Encouraged IS
Diet advancement per protocol
Aspiration precautions
GI prophylaxis if indicated for stress ulcer prevention in the critically ill
Creat at baseline, follow UO
Critical I/Os
Void trials
Replete electrolytes as needed
No signs/symptoms suspicious for infectious etiology at this time
Will observe off antibiotics for now
Follow temperatures/CBC
Hb and platelets postoperatively stable
DVT prophylaxis recommended if not contraindicated based on procedural history -- heparin SQ and mechanical SCDs
Encouraged OOB/PT/OT/ambulation once cleared by surgical team
Can likely transfer to floors this PM, we will sign off upon transfer
Diagnostic Data
Chest X-Ray: 03/08/25- No acute cardiopulmonary abnormality.
CT Scan:
Echo: 08/08/23- Technically challenging study as endocardial border is suboptimally visualized in some views. Overall mildly reduced left ventricular systolic function with estimate ejection fraction 45 to 50%. Global lander strain is mildly
abnormal at -15.7% Stage I diastolic dysfunction. Aortic valve sclerosis. Mild aortic regurgitation. There is modest improvement in left ventricular systolic function in comparison to prior study
PFT's:
Reports and relevant images were personally reviewed.
Critical Care time 50 mins -- this includes review of history, physical exam, medications, hemodynamic/O2 parameters, laboratory data, imaging and discussions with care team, pharmacy, nursing and patient.
--- NOTE | 2025-03-12 08:00 | PTCARENOTE ---
Assumed care of pt at 0715 following shift report. Pt's significant other present in room. Assessment of surgical dressing and pulse check of LEs completed w/outgoing shift RN. Pt awake and resting quietly. Denies any pain at this time. Physical
assessment completed as documented. Pt remains on RA w/ POx 96%. Rt radial [place] in place- leveled/balanced and zero'ed. waveform wnl. Montesinos catheter patent and draining clear yellow urine. Call jone w/in pt reach and safe environment maintained.
[2025-03-12] MEDS: CYMBALTA DELAYED RELEASE 60 MG PO (08:19)
[2025-03-12] MEDS: CRESTOR 20 MG PO (08:19)
[2025-03-12] MEDS: ROXICODONE 5 MG PO (08:20)
[2025-03-12] MEDS: TOPROL XL 25 MG PO (08:20)
[2025-03-12] MEDS: COZAAR 50 MG PO (08:20)
[2025-03-12] MEDS: LOW STRENGTH ASPIRIN 81 MG PO (08:20)
[2025-03-12] MEDS: FLOMAX 0.4 MG PO (08:20)
[2025-03-12] MEDS: HEPARIN 5000 UNITS SC ×2 (08:21→19:58)
[2025-03-12] MEDS: PLAVIX 75 MG PO (08:21)
--- NOTE | 2025-03-12 08:30 | W.PN.VS ---
Today's Communication / Plan
-
Seen and assessed with Dr. Ansari
Assessment/Plan
-
Postop day 1 left lower extremity arterial bypass
Plan:
DC A-line
DC IV fluids
DC Montesinos
Out of bed to chair, progressed ambulation
Diabetic diet
A1c
Insulin sliding scale
Subjective Data
-
Date of Service: March 12, 2025
Patient seen at bedside today with Dr. Ansari. Patient offers no complaints this time. No events overnight. Vital signs stable
Objective Data
-
Vital Signs
Temp Pulse Resp BP Pulse Ox
98.8 F 85 17 151/51 95
03/12/25 04:20 03/12/25 08:20 03/12/25 06:15 03/12/25 08:20 03/12/25 06:15
Intake and Output
03/11/25 03/12/25 03/13/25
06:59 06:59 06:59
Intake Total 1460 / 1460
Output Total 1700 / 1700
Balance -240 / -240
Intake:
Oral fluids 480 / 480
IV fluids (Total) 980 / 980
Nss 1,000 ml @ 80 mls/hr IV . 880 / 880
[id number] DO Rx#:[id number]
normosol 100 / 100
Output:
Urine, Montesinos 1700 / 1700
Lab Results
03/12/25 03:17
03/12/25 03:17
Calcium 8.1 mg/dl (8.4-10.2) L 03/12/25 03:17
Physical Exam
-
AAO x 3
No tachypnea on room air
No tachycardia
Abdomen soft
Left lower extremity dressings all clean, dry, intact, soft, flat. Arpit wrap removed
Palpable PT pulse
--- NOTE | 2025-03-12 09:00 | PTCARENOTE ---
Ginger Montesinos d/c'ed per order. Pt assisted in ordering breakfast. Oxy given for pt c/o pain with plans to get OOB to chair later this morning.
--- NOTE | 2025-03-12 09:40 | CM ---
I.A: Completed By HALLIE Sanchez. Patient's second language is Fijian.
Patient lives with his in a 3 [address] with 0 STI and 10 to 12 STI. DME: [employer], No Other. VN/PT. but cannot recall the name of the agency.
PCP: Dr. Jose C Spring
Pharm: [facility]
Patient had transport when ready. PLAN: Anticipate Home No Needs.
--- NOTE | 2025-03-12 12:00 | PTCARENOTE ---
Pt OOB to chair w/ assist of two staff at 1045. Tolerated increased activity w/o complication. Remains OOB in chair visiting w/ . No new complaints or changes noted from previous assessment findings. Surgical dressing unchanged in appearance.
Pt's reports pt used urinal to void 150ml- reports she disposed of pt's urine. This RN explained to that it is important that staff dispose of urine next time pt voids as it aids in assessment of pt- verbalized understanding.
Call becerril w/in pt reach.
[2025-03-12 12:40] LABS: Glucose - Point of Care 142 mg/dl (70-99)
[2025-03-12 14:10] LABS: Glycohemoglobin (HgbA1c) 6.4 % (4.0-5.9)
[2025-03-12] MEDS: NOVOLOG FLEXPEN-LOW RESISTANCE SC (15:22)
[2025-03-12] MEDS: BACITRACIN OINTMENT TOPICAL (15:23)
--- NOTE | 2025-03-12 16:15 | PTCARENOTE ---
Pt continues to sit OOB in chair. No complaints offered. No changes from previous assessment findings.
[2025-03-12 17:39] LABS: Glucose - Point of Care 174 mg/dl (70-99)
[2025-03-12] MEDS: NOVOLOG FLEXPEN-LOW RESISTANCE 1 UNITS SC (17:58)
--- NOTE | 2025-03-12 20:00 | PTCARENOTE ---
Received pt. at 1900. Pt. currently awake, alert, and oriented. Denies pain/discomfort. Afebrile. Neurovascular check performed. Pulses present with doppler except Right dorsalis pedis. Heart rhythm sinus. Blood pressure normotensive. Currently on
room air. Lungs sound diminished. PO diet ordered. Good appetite. Abdomen soft, round. Voiding in urinal without issue. Skin as documented. Discussed plan of care with patient and his . Vital signs stable at this time.
[2025-03-12] MEDS: TUMS CHEWABLE TABLET 400 MG PO (22:36)
[2025-03-13] VITALS (18 sets, daily range): BP systolic 101–153; BP diastolic 39–74; PULSE 74; BMI 23.2
--- NOTE | 2025-03-13 | PTCARENOTE ---
Pt. assessment unchanged. LLE pulses present with doppler. Pt. denies pain/discomfort. Vital signs stable at this time.
[2025-03-13 03:49] LABS: Hematocrit 27.4 % (39.0-52.0); Hemoglobin 9.1 g/dL (13.0-18.0); Mean Corp Hgb Conc. 33.2 g/dL (33.0-37.0); Mean Corpuscular Volume 91.3 fL (80.0-94.0); Platelet Count 89 10^3/uL (130-400); Red Cell Dist. Width 13.7 % (11.5-14.5)
--- NOTE | 2025-03-13 04:00 | PTCARENOTE ---
Pt. assessment remains unchanged. Pulses present with doppler. AM labs drawn. Vital signs stable at this time.
[2025-03-13 04:10] LABS: Blood Urea Nitrogen 35 mg/dl (9-20); Calcium 8.3 mg/dl (8.4-10.2); Carbon Dioxide 25 mmol/L (22-30); Chloride 108 mmol/L (98-107); Estimated Creatinine Clearance 43 ml/min; Glucose 112 mg/dl (70-99); Potassium 4.9 mmol/L (3.5-5.1); Sodium 133 mmol/L (135-145); eGFR 52.74
[2025-03-13 07:14] LABS: Glucose - Point of Care 179 mg/dl (70-99)
[2025-03-13] MEDS: FLOMAX 0.4 MG PO (07:51)
[2025-03-13] MEDS: NOVOLOG FLEXPEN-LOW RESISTANCE 1 UNITS SC (07:51)
[2025-03-13] MEDS: CRESTOR 20 MG PO (07:51)
[2025-03-13] MEDS: CYMBALTA DELAYED RELEASE 60 MG PO (07:51)
--- NOTE | 2025-03-13 07:51 | W.PN.INTV ---
Today's Communication / Plan
Recommendations
Doing well, no events ON
Remains stable, off pressors, on room air
OOB, PT
Further postop management per team
Transfer to floors, we will sign off upon transfer
Assessment
-
74-year-old male with prior history of severe PAD, former smoker, diabetes, hypertension, chronic kidney disease presenting for elective vascular surgery. On most recent CT scan as an outpatient he has demonstrated stenosis on the right side at the
distal anastomosis of the short interposition femoral bypass (prior history of RLE bypass in 2023) complicated by worsening left-sided disease throughout. Underwent left superficial femoral artery to posterior tibial artery bypass 03/11/2025 and
postoperatively admitted to ICU for further management.
Severe PAD s/p Left lower extremity arterial bypass SFA to PT with ipsilateral nonreversed greater saphenous vein 03/11/25
Poorly healing left foot wound
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
PAD with severe RLE claudication with severe femoral bifurcation plaque/occlusive disease s/p right FEA with interposition bypass from MUSIC LIBRARY ASSISTANT to syndactylized profunda/SFA (01/29/24)
Former heavy tobacco smoker (quit 20 years ago with >93-btuw-iqnn history)
Chronic anemia
Metabolic acidosis with normal anion gap - resolved
Hyperkalemia (mild) - resolved s/p IV insulin/D50 on 01/29/2024
DM type II c/b hyperglycemia - hyperglycemia now resolved
History of LBBB
Carotid artery stenosis
Hyperlipidemia
Hypertension
Plan
Patient is s/p left lower extremity bypass by vascular surgery service, POD #2
Continue observation following procedure
Follow neurovascular checks per protocol
ASA, betablocker and statin on board
Follow BP monitoring and parameters as set by primary team
Cardiac history noted--HTN, PAD, carotid dz
Monitor on telemetry
Pain control per protocol
RASS goal 0
No prior history of pulmonary disease, smoking hx includes 70PYs
Certainly at risk -- can refer for OP testing if symptoms arise/quit >20 years ago, not indicated for LDCTs
CXR reviewed indicating no acute disease
No prior PFTs for review
Encouraged IS
Diet advancement per protocol
Aspiration precautions
GI prophylaxis if indicated for stress ulcer prevention in the critically ill
Creat at baseline, follow UO
Critical I/Os
Void trials
Replete electrolytes as needed
No signs/symptoms suspicious for infectious etiology at this time
Will observe off antibiotics for now
Follow temperatures/CBC
Hb and platelets postoperatively stable
DVT prophylaxis recommended if not contraindicated based on procedural history -- heparin SQ and mechanical SCDs
Encouraged OOB/PT/OT/ambulation once cleared by surgical team
Can likely transfer to floors, we will sign off upon transfer
Diagnostic Data
Chest X-Ray: 03/08/25- No acute cardiopulmonary abnormality.
CT Scan:
Echo: 08/08/23- Technically challenging study as endocardial border is suboptimally visualized in some views. Overall mildly reduced left ventricular systolic function with estimate ejection fraction 45 to 50%. Global lander strain is mildly
abnormal at -15.7% Stage I diastolic dysfunction. Aortic valve sclerosis. Mild aortic regurgitation. There is modest improvement in left ventricular systolic function in comparison to prior study
PFT's:
Reports and relevant images were personally reviewed.
Critical Care time 35 mins -- this includes review of history, physical exam, medications, hemodynamic/O2 parameters, laboratory data, imaging and discussions with care team, pharmacy, nursing and patient.
Subjective Dataa
Subjective Data
Date of Service:
Date of Service: March 13, 2025
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
Subjective:
No events ON, no new complaints
Doing well, stable on RA
Objective Data
Data Reviewed
Vital Signs / I&O / Oxygen:
Vital Signs
Temp Pulse Resp BP Pulse Ox
98.6 F 79 14 111/39 99
03/13/25 07:11 03/13/25 06:00 03/13/25 06:00 03/13/25 06:00 03/13/25 03:55
Intake and Output
03/12/25 03/13/25 03/14/25
06:59 06:59 06:59
Intake Total 1460 / 1460 1140 / 1140
Output Total 1700 / 1700 1230 / 1230
Balance -240 / -240 -90 / -90
SaO2 99
Nasal Cannula flow liters per 10
minute
Physical Exam
General: Comfortable and Other (NAD)
HEENT: Normocephalic, Anicteric and Moist Mucous Membranes
Cardiovascular: S1-S2 and Regular Rhythm
Respiratory: Clear and Non-Labored Respirations
GI: Soft, Non Distended and Non Tender
Neurology: Awake, Alert, Oriented and No Motor Deficits
Skin: Warm, Dry and Good Color
Labs/Micro/Reports
Lab Data
03/13/25 03:37
03/13/25 03:37
[2025-03-13] MEDS: PLAVIX 75 MG PO (07:52)
[2025-03-13] MEDS: COZAAR 50 MG PO (07:52)
[2025-03-13] MEDS: TOPROL XL 25 MG PO (07:52)
[2025-03-13] MEDS: LOW STRENGTH ASPIRIN 81 MG PO (07:53)
[2025-03-13] MEDS: BACITRACIN OINTMENT 1 APPLIC TOPICAL (07:53)
[2025-03-13] MEDS: HEPARIN 5000 UNITS SC ×2 (07:53→19:44)
--- NOTE | 2025-03-13 08:33 | W.PN.VS ---
Today's Communication / Plan
-
Plan reviewed with on-call attending Dr. Lincoln.
Assessment/Plan
-
Postop day 2 left lower extremity arterial bypass
Plan:
Out of bed to chair, progressed ambulation
PT eval and treat
Diabetic diet
Insulin sliding scale
DVT prophylaxis
Continue dual antiplatelet of aspirin 81 mg p.o. daily and Plavix 75 mg p.o. daily, continue statin therapy
Okay to downgrade to telemetry
Continue to encourage incentive spirometry
Subjective Data
-
Date of Service: March 13, 2025
Patient seen examined at bedside, offers no complaints and reports well-managed postoperative pain. Denies nausea, vomiting, fever, and chills. Reports tolerating p.o. diet.
Objective Data
-
Vital Signs
Temp Pulse Resp BP Pulse Ox
98.6 F 77 20 101/55 98
03/13/25 07:11 03/13/25 08:25 03/13/25 08:25 03/13/25 08:25 03/13/25 08:25
Intake and Output
03/12/25 03/13/25 03/14/25
06:59 06:59 06:59
Intake Total 1460 / 1460 1140 / 1140 240 / 240
Output Total 1700 / 1700 1230 / 1230 400 / 400
Balance -240 / -240 -90 / -90 -160 / -160
Intake:
Oral fluids 480 / 480 1140 / 1140 240 / 240
IV fluids (Total) 980 / 980
Nss 1,000 ml @ 80 mls/hr IV . 880 / 880
[id number] DO Rx#:[id number]
normosol 100 / 100
Output:
Urine, Montesinos 1700 / 1700 200 / 200
Urine, Voided 1030 / 1030 400 / 400
Lab Results
03/13/25 03:37
03/13/25 03:37
Calcium 8.3 mg/dl (8.4-10.2) L 03/13/25 03:37
Physical Exam
-
AAO x 3
No tachypnea on room air
No tachycardia
Abdomen soft
Left lower extremity dressings all clean, dry, intact, soft, flat. Dressings all removed, suture line well-approximated and Exofin glue intact. No evidence of hematoma, all compartments of leg soft.
Palpable PT pulse, left foot warm
--- NOTE | 2025-03-13 08:45 | W.[place]-PDMP ---
[place]-PD[place]
-
Checked the [place]- Prescription Drug Monitoring Program website, no red flags identified; safe to proceed with prescription.
--- NOTE | 2025-03-13 09:41 | CM ---
Chart reviewed PT eval pending tx to floor today
DCP is after PT eval
[2025-03-13] MEDS: NOVOLOG FLEXPEN-LOW RESISTANCE SC ×2 (11:52→17:23)
[2025-03-13 11:53] LABS: Glucose - Point of Care 142 mg/dl (70-99)
--- NOTE | 2025-03-13 12:02 | PTCARENOTE ---
Updated assessment, vital signs ongoing and as documented. Updates with surgical team and internal medicine specialist. Downgraded to tele await 2s/2n bed. Patient working with PT/OT ambulates hallway and room. Continue ongoing follow up vascular checks. Hourly
rounds and checks ongoing. Updates with at bedside. Supportive cares ongoing.
--- NOTE | 2025-03-13 15:00 | PTCARENOTE ---
Update with 2S team plan of transfer. Family updated plan of cares. Update transition to telemetry. Continue supportive cares. Belongings with patient and family.
--- NOTE | 2025-03-13 15:22 | PTCARENOTE ---
received pt as transfer from icu into [id number].VSS, assessment as documented, pt and family oriented to room. Pt denies pain at this time.
[2025-03-13 17:15] LABS: Glucose - Point of Care 135 mg/dl (70-99)
[2025-03-13 22:23] LABS: Glucose - Point of Care 118 mg/dl (70-99)
[2025-03-14 02:55] VITALS: BP 148/61
[2025-03-14] MEDS: THORAZINE 10 MG PO (03:13)
[2025-03-14] MEDS: MIRALAX 17 GRAMS PO ×2 (03:13→12:29)
[2025-03-14] MEDS: COLACE 100 MG PO (03:13)
[2025-03-14 07:52] LABS: Hematocrit 29.2 % (39.0-52.0); Hemoglobin 9.5 g/dL (13.0-18.0); Mean Corp Hgb Conc. 32.5 g/dL (33.0-37.0); Mean Corpuscular Volume 92.7 fL (80.0-94.0); Platelet Count 106 10^3/uL (130-400); Red Cell Dist. Width 13.8 % (11.5-14.5)
[2025-03-14 08:00] VITALS: BP 121/53
[2025-03-14 08:17] LABS: Blood Urea Nitrogen 36 mg/dl (9-20); Calcium 8.8 mg/dl (8.4-10.2); Carbon Dioxide 27 mmol/L (22-30); Chloride 105 mmol/L (98-107); Estimated Creatinine Clearance 43 ml/min; Glucose 121 mg/dl (70-99); Potassium 4.5 mmol/L (3.5-5.1); Sodium 133 mmol/L (135-145); eGFR 52.74
[2025-03-14] MEDS: LOW STRENGTH ASPIRIN 81 MG PO (08:42)
[2025-03-14] MEDS: FLOMAX 0.4 MG PO (08:42)
[2025-03-14] MEDS: PLAVIX 75 MG PO (08:42)
[2025-03-14] MEDS: CYMBALTA DELAYED RELEASE 60 MG PO (08:42)
[2025-03-14] MEDS: TOPROL XL 25 MG PO (08:42)
[2025-03-14] MEDS: HEPARIN 5000 UNITS SC ×2 (08:43→22:47)
[2025-03-14] MEDS: CRESTOR 20 MG PO (08:43)
[2025-03-14] MEDS: COZAAR 50 MG PO (08:43)
[2025-03-14 08:50] LABS: Glucose - Point of Care 161 mg/dl (70-99)
[2025-03-14] MEDS: NOVOLOG FLEXPEN-LOW RESISTANCE SC ×3 (08:50→17:04)
[2025-03-14] MEDS: BACITRACIN OINTMENT 1 APPLIC TOPICAL (08:50)
[2025-03-14 11:20] VITALS: BP 96/45
[2025-03-14 11:41] LABS: Glucose - Point of Care 130 mg/dl (70-99)
--- NOTE | 2025-03-14 15:24 | W.PN.VS ---
Today's Communication / Plan
-
no changes
Assessment/Plan
-
Postop day 3 left lower extremity arterial bypass
Plan:
Out of bed to chair, progressed ambulation
PT eval and treat
Diabetic diet
Insulin sliding scale
DVT prophylaxis
Continue dual antiplatelet of aspirin 81 mg p.o. daily and Plavix 75 mg p.o. daily, continue statin therapy
Continue to encourage incentive spirometry
Subjective Data
-
Date of Service: March 14, 2025
Seen and examined at bedside. Ambulating well. + flatus. No BM
Objective Data
-
Vital Signs
Temp Pulse Resp BP Pulse Ox
97.4 F 81 16 96/45 95
03/14/25 11:20 03/14/25 11:20 03/14/25 11:20 03/14/25 11:20 03/14/25 11:20
Intake and Output
03/13/25 03/14/25 03/15/25
06:59 06:59 06:59
Intake Total 1140 / 1140 880 / 880
Output Total 1230 / 1230 700 / 700
Balance -90 / -90 180 / 180
Intake:
Oral fluids 1140 / 1140 880 / 880
Output:
Urine, Montesinos 200 / 200
Urine, Voided 1030 / 1030 700 / 700
Other:
Number of approximated MODERATE 1
amounts of urine
Lab Results
03/14/25 07:23
03/14/25 07:23
Calcium 8.8 mg/dl (8.4-10.2) 03/14/25 07:23
Physical Exam
-
AAO x 3
No tachypnea on room air
No tachycardia
Abdomen soft
Left lower extremity dressings all clean, dry, intact, soft, flat. Dressings all removed, suture line well-approximated and Exofin glue intact. No evidence of hematoma, all compartments of leg soft.
Palpable graft pulse, left foot warm; edematous
[2025-03-14 15:45] VITALS: BP 112/57
[2025-03-14 17:03] LABS: Glucose - Point of Care 111 mg/dl (70-99)
[2025-03-14 19:00] VITALS: BP 121/51
[2025-03-14 21:39] LABS: Glucose - Point of Care 154 mg/dl (70-99)
[2025-03-14 23:00] VITALS: BP 136/53
[2025-03-15 03:00] VITALS: BP 123/49
[2025-03-15 05:22] VITALS: BMI 23.0
[2025-03-15 07:00] VITALS: BP 128/66
--- NOTE | 2025-03-15 07:36 | W.PN.VS ---
Today's Communication / Plan
-
Seen and assessed with Dr. Ansari
Assessment/Plan
-
Postop day 4 left lower extremity arterial bypass
Plan:
Continue aspirin/Plavix/statin on discharge
Patient ready for discharge today
Subjective Data
-
Date of Service: March 15, 2025
Patient seen at bedside this a.m. with Dr. Ansari. Patient offers no complaints at this time. No events overnight. at bedside.
Objective Data
-
Vital Signs
Temp Pulse Resp BP Pulse Ox
97.9 F 67 16 123/49 95
03/15/25 03:00 03/15/25 03:00 03/15/25 03:00 03/15/25 03:00 03/15/25 03:00
Intake and Output
03/14/25 03/15/25 03/16/25
06:59 06:59 06:59
Intake Total 880 / 880 720 / 720
Output Total 700 / 700 600 / 600
Balance 180 / 180 120 / 120
Intake:
Oral fluids 880 / 880 720 / 720
Output:
Urine, Voided 700 / 700 600 / 600
Other:
Number of approximated SMALL 1
amounts of urine
Number of approximated MODERATE 1 2
amounts of urine
Calcium 8.8 mg/dl (8.4-10.2) 03/14/25 07:23
Physical Exam
-
AAO x 3
No tachypnea on room air
No tachycardia
Abdomen soft
Left lower extremity surgical sites all clean, dry, intact, soft, flat. suture line well-approximated and Exofin glue intact. No evidence of hematoma, all compartments of leg soft.
Palpable graft pulse, left foot warm; edematous
Palpable PT pulse
[2025-03-15 07:42] LABS: Glucose - Point of Care 117 mg/dl (70-99)
[2025-03-15] MEDS: NOVOLOG FLEXPEN-LOW RESISTANCE SC ×3 (07:46→18:00)
[2025-03-15 07:47] LABS: Hematocrit 30.1 % (39.0-52.0); Hemoglobin 10.0 g/dL (13.0-18.0); Mean Corp Hgb Conc. 33.2 g/dL (33.0-37.0); Mean Corpuscular Volume 90.1 fL (80.0-94.0); Platelet Count 124 10^3/uL (130-400); Red Cell Dist. Width 13.7 % (11.5-14.5)
[2025-03-15] MEDS: CRESTOR 20 MG PO (08:10)
[2025-03-15] MEDS: COLACE 100 MG PO (08:10)
[2025-03-15] MEDS: CYMBALTA DELAYED RELEASE 60 MG PO (08:10)
[2025-03-15] MEDS: PLAVIX 75 MG PO (08:10)
[2025-03-15] MEDS: LOW STRENGTH ASPIRIN 81 MG PO (08:10)
[2025-03-15 08:19] LABS: Blood Urea Nitrogen 40 mg/dl (9-20); Calcium 8.9 mg/dl (8.4-10.2); Carbon Dioxide 25 mmol/L (22-30); Chloride 105 mmol/L (98-107); Estimated Creatinine Clearance 47 ml/min; Glucose 104 mg/dl (70-99); Potassium 5.0 mmol/L (3.5-5.1); Sodium 134 mmol/L (135-145); eGFR 57.65
[2025-03-15] MEDS: BACITRACIN OINTMENT 1 APPLIC TOPICAL (08:24)
[2025-03-15] MEDS: COZAAR 50 MG PO (08:29)
[2025-03-15] MEDS: TOPROL XL 25 MG PO (08:29)
--- NOTE | 2025-03-15 08:36 | PN.DE.MGMTRT ---
Insulin Management
- -
03/15/2025: Diabetes Management Consult
74 year old male w/ PMH: HTN, Chronic anemia, hx of LBBB, Carotid artery stenosis, Hyperlipidemia, hx of prostate and stomach cancer on chemo, T2DM, Former heavy tobacco smoker (quit 20 years ago with >94-[id number]-[id number] history, CKD and severe PAD with
severe RLE claudication with severe femoral bifurcation plaque/occlusive disease s/p RLE bypass/SFA (01/29/24), complicated by worsening left-sided disease throughout. Patient presenting for elective vascular surgery, he underwent left superficial
femoral artery to posterior tibial artery bypass 03/11/2025.
Consulted for Diabetes management, however, pt is pre-diabetic, A1C 6.4%, Cr 1.3 (baseline 1.5), eGFR 57.65
Patient is awake, alert, oriented, sitting up in bed, offers no complaints, able to discuss diabetes care plan. at bedside, very supportive. POD # 4
Glucose has been stable and in range, 116 to 161, fasting 94 V, 117 POC. Patient has not required any corrective insulin with meals
Discussed option to start Metformin, pt concerned that he will have severe GI SE in setting of chemo.
Pt is not a candidate for insulin given A1C that indicates pre-diabetes and normal glucose range.
Encouraged pt to follow up with his PCP and primary oncology team to discuss best course of management while on chemo.
Provided information for outpatient Pre-diabetes education session.
Diabetes History
- -
Type of Diabetes: 2
Pre-Admission Diabetes Regimen
03/15/25
07:07
Creatinine 1.3
Lab Results
Hemoglobin A1c 6.4 % (4.0-5.9) H 03/12/25 09:35
Insulin Pump Settings
IP Diabetes Regimen
03/14/25 03/14/25 03/14/25
08:48 11:40 17:02
Glucose
POC Glucose 161 H 130 H 111 H
03/14/25 03/15/25 03/15/25
21:36 07:07 07:41
Glucose 104 H
POC Glucose 154 H 117 H
Meal type: Lunch
Amount consumed: 75%
Patient Education
[2025-03-15] MEDS: FLOMAX 0.4 MG PO (08:38)
[2025-03-15] MEDS: HEPARIN SC ×3 (08:39→19:49)
[2025-03-15] MEDS: GLUCOPHAGE XR EXTENDED RELEASE 500 MG PO (10:49)
[2025-03-15 11:09] VITALS: BP 116/58
[2025-03-15 11:58] LABS: Glucose - Point of Care 120 mg/dl (70-99)
[2025-03-15 12:45] VITALS: BP 106/52; PULSE 67
[2025-03-15] MEDS: MIRALAX 17 GRAMS PO (13:50)
[2025-03-15 15:00] VITALS: BP 116/54
[2025-03-15 16:55] LABS: Glucose - Point of Care 158 mg/dl (70-99)
--- NOTE | 2025-03-15 17:24 | CM ---
Discharge POC: Therapy rec for HH PT/OT. Referral placed to [facility].
[2025-03-15 21:44] LABS: Glucose - Point of Care 134 mg/dl (70-99)
[2025-03-15 23:13] VITALS: BP 123/48
[2025-03-16 05:54] VITALS: BMI 22.8
[2025-03-16 07:20] VITALS: BP 129/59
--- NOTE | 2025-03-16 07:39 | PN.DE.MGMTRT ---
Insulin Management
- -
03/16/2025: Diabetes Management Consult Follow up
74 year old male w/ PMH: HTN, Chronic anemia, hx of LBBB, Carotid artery stenosis, Hyperlipidemia, hx of prostate and stomach cancer on chemo, T2DM, Former heavy tobacco smoker (quit 20 years ago with >15-udtj-lily history, CKD and severe PAD with
severe RLE claudication with severe femoral bifurcation plaque/occlusive disease s/p RLE bypass/SFA (01/29/24), complicated by worsening left-sided disease throughout. Patient presenting for elective vascular surgery, he underwent left superficial
femoral artery to posterior tibial artery bypass 03/11/2025.
Consulted for Diabetes management, however, pt is pre-diabetic, A1C 6.4%, Cr 1.3, eGFR 57.65
POD # 5 Patient is awake, alert, oriented, sitting up in bed, offers no complaints, able to discuss diabetes care plan. at bedside, very supportive.
Glucose has been stable and in range, 117 to 158.
Fasting glucose today 123. Patient has not required any corrective insulin with meals
Discussed option to start Metformin, pt concerned that he will have severe GI SE in setting of chemo. Will stop metformin.
Pt is not a candidate for insulin given A1C that indicates pre-diabetes and normal glucose range.
Encouraged pt to follow up with his PCP and primary oncology team to discuss best course of management while on chemo.
Provided information for outpatient Pre-diabetes education session.
Discussed with nurse.
Will follow
Diabetes History
- -
Pre-Admission Diabetes Regimen
03/15/25
07:07
Creatinine 1.3
Lab Results
Hemoglobin A1c 6.4 % (4.0-5.9) H 03/12/25 09:35
Insulin Pump Settings
IP Diabetes Regimen
03/15/25 03/15/25 03/15/25
07:07 07:41 11:57
Glucose 104 H
POC Glucose 117 H 120 H
03/15/25 03/15/25
16:54 21:43
Glucose
POC Glucose 158 H 134 H
Meal type: Dinner
Meal type: Lunch
Meal type: Breakfast
Amount consumed: 100%
Amount consumed: 100%
Amount consumed: 100%
Patient Education
[2025-03-16] MEDS: NOVOLOG FLEXPEN-LOW RESISTANCE SC ×3 (07:40→18:07)
[2025-03-16 07:50] LABS: Glucose - Point of Care 123 mg/dl (70-99)
[2025-03-16] MEDS: CRESTOR 20 MG PO (09:20)
[2025-03-16] MEDS: COZAAR 50 MG PO (09:20)
[2025-03-16] MEDS: CYMBALTA DELAYED RELEASE 60 MG PO (09:20)
[2025-03-16] MEDS: LOW STRENGTH ASPIRIN 81 MG PO (09:21)
[2025-03-16] MEDS: HEPARIN 5000 UNITS SC ×2 (09:21→21:25)
[2025-03-16] MEDS: TOPROL XL 25 MG PO (09:21)
[2025-03-16] MEDS: GLUCOPHAGE XR EXTENDED RELEASE 500 MG PO (09:21)
[2025-03-16] MEDS: PLAVIX 75 MG PO (09:21)
[2025-03-16] MEDS: FLOMAX 0.4 MG PO (09:25)
[2025-03-16] MEDS: BACITRACIN OINTMENT 1 APPLIC TOPICAL (09:30)
[2025-03-16] MEDS: TYLENOL 650 MG PO (09:35)
--- NOTE | 2025-03-16 09:59 | W.PN.VS ---
Addendum entered and electronically signed by Sal Montesinos III, MD 03/16/25 11:49:
This patient was seen and examined in collaboration with RAFAELA Lozada. I agree with the history and physical exam as well as the assessment and plan. I have the following additions:
Proximal left thigh wound open for several centimeters
Base is clean and dry
No bleeding identified
Continue local wound care
Discharge planning
Signed:
Sal Montesinos III, MD
Vascular Surgery
[facility]
Original Note:
Today's Communication / Plan
-
Patient seen and examined at bedside with Dr. Sal Montesinos III, below plan reviewed with attending.
Assessment/Plan
-
Postop day 5 left lower extremity arterial bypass
Plan:
Continue aspirin/Plavix/statin on discharge
Patient will do daily wet to dry dressing changes for wound management, will observe new dressing today and if remains dry likely will dc this afternoon
Case management consult for visiting nurse
Subjective Data
-
Date of Service: March 16, 2025
Patient seen and examined at bedside, reports no bleeding through dressing overnight. Reports well managed post operative pain. Denies nausea, vomiting, fever and chills.
Objective Data
-
Vital Signs
Temp Pulse Resp BP Pulse Ox
97.9 F 65 16 129/59 98
03/16/25 07:20 03/16/25 07:20 03/16/25 07:20 03/16/25 07:20 03/16/25 07:20
Intake and Output
03/15/25 03/16/25 03/17/25
06:59 06:59 06:59
Intake Total 720 / 720 840 / 840
Output Total 600 / 600
Balance 120 / 120 840 / 840
Intake:
Oral fluids 720 / 720 840 / 840
Output:
Urine, Voided 600 / 600
Other:
Number of approximated SMALL 1
amounts of urine
Number of approximated MODERATE 2 3
amounts of urine
Lab Results
03/15/25 07:07
03/15/25 07:07
Calcium 8.9 mg/dl (8.4-10.2) 03/15/25 07:07
Physical Exam
-
AAO x 3
No tachypnea on room air
No tachycardia
Abdomen soft
Left lower extremity surgical upper and lower anastomosis sites clean, dry, and intact. Upper pole of saphenectomy incision with small area of dehiscence, clean, dry, and intact no evidence of active bleeding, dressing reapplied
Palpable graft pulse, left foot warm; edematous
Palpable PT pulse
[2025-03-16 11:40] VITALS: BP 121/56
[2025-03-16 12:09] LABS: Glucose - Point of Care 140 mg/dl (70-99)
[2025-03-16 15:20] VITALS: BP 112/52
[2025-03-16 17:03] LABS: Glucose - Point of Care 140 mg/dl (70-99)
--- NOTE | 2025-03-16 17:27 | CM ---
Discharge POC: Home with [facility] RN, PT/OT services. Referral previously placed.
[2025-03-16 22:48] LABS: Glucose - Point of Care 126 mg/dl (70-99)
[2025-03-16 23:21] VITALS: BP 115/47
[2025-03-17 07:22] LABS: Glucose - Point of Care 126 mg/dl (70-99)
[2025-03-17 07:40] VITALS: BP 124/62
--- NOTE | 2025-03-17 07:40 | PN.DE.MGMTRT ---
Insulin Management
- -
03/17/2025: Diabetes Management Consult Follow up
74 year old male w/ PMH: HTN, Chronic anemia, hx of LBBB, Carotid artery stenosis, Hyperlipidemia, hx of prostate and stomach cancer on chemo, T2DM, Former heavy tobacco smoker (quit 20 years ago with >75-oanx-xdam history, CKD and severe PAD with
severe RLE claudication with severe femoral bifurcation plaque/occlusive disease s/p RLE bypass/SFA (01/29/24), complicated by worsening left-sided disease throughout. Patient presenting for elective vascular surgery, he underwent left superficial
femoral artery to posterior tibial artery bypass 03/11/2025.
Consulted for Diabetes management, however, pt is pre-diabetic, A1C 6.4%, Cr 1.3, eGFR 57.65
POD # 6 Patient is awake, alert, oriented, sitting up in bed, offers no complaints, able to discuss diabetes care plan. Family at bedside, patient for discharge today.
Glucose has been stable and in range, 123 to 140.
Fasting glucose today 123. Patient has not required any corrective insulin with meals
Discussed option to start Metformin, pt concerned that he will have severe GI SE in setting of chemo. Will stop metformin.
Encouraged pt and family to follow up with his PCP and primary oncology team to discuss best course of management while on chemo. Currently glucose control adequate.
Provided information for outpatient Pre-diabetes education session.
Discussed with nurse.
Will follow
Diabetes History
- -
Pre-Admission Diabetes Regimen
Lab Results
Hemoglobin A1c 6.4 % (4.0-5.9) H 03/12/25 09:35
Insulin Pump Settings
IP Diabetes Regimen
03/16/25 03/16/25 03/16/25
07:39 12:03 17:01
POC Glucose 123 H 140 H 140 H
03/16/25 03/17/25
22:36 07:19
POC Glucose 126 H 126 H
Meal type: Dinner
Meal type: Lunch
Meal type: Breakfast
Amount consumed: 100%
Amount consumed: 75%
Amount consumed: 100%
Patient Education
--- NOTE | 2025-03-17 07:41 | W.PN.VS ---
Addendum entered and electronically signed by Dipesh Ansari MD 03/17/25 10:15:
Seen and examined with CASS Bonner. Agree with findings as noted below. Left lower extremity incisions aside from the most proximal aspect in the proximal thigh of the greater saphenous vein harvest site are all clean dry and intact. Palpable 2+ PT
pulse at the ankle. That proximal extent of that incision in the high thigh with small superficial dehiscence is noted prior. Site is clean. I discussed with them that would not close it at this point given concerns of infection. But I did place
3 Steri-Strips to slightly approximate the skin. However the space in between them is open to allow any drainage. Plan/as discussed and noted below.
Addendum entered and electronically signed by RAFAELA Lozada 03/17/25 07:58:
Also confirmed with patient, daughter, and that he will initiate his immunotherapy infusion for his cancer treatment in roughly 2 weeks from surgery, this plan was reviewed with Dr. Dipesh Ansari M.D.
Original Note:
Today's Communication / Plan
-
Patient seen and examined at bedside with Dr. Dipesh Ansari, below plan reviewed with attending.
Assessment/Plan
-
Postop day 6 left lower extremity arterial bypass
Plan:
Continue aspirin/Plavix/statin on discharge
Patient will do daily dry dressing changes for wound management
Case management consult for visiting nurse
Cleared for discharge today
Subjective Data
-
Date of Service: March 17, 2025
Patient seen and examined at bedside, offers no complaints. Denies nausea, vomiting, fever, and chills.
Objective Data
-
Vital Signs
Temp Pulse Resp BP Pulse Ox
97.4 F 60 16 115/47 95
03/16/25 23:21 03/16/25 23:21 03/16/25 23:21 03/16/25 23:21 03/16/25 23:21
Intake and Output
03/16/25 03/17/25 03/18/25
06:59 06:59 06:59
Intake Total 840 / 840 1450 / 1450
Output Total 400 / 400
Balance 840 / 840 1050 / 1050
Intake:
Oral fluids 840 / 840 1450 / 1450
Output:
Urine, Voided 400 / 400
Other:
Number of approximated MODERATE 3 2
amounts of urine
Number of approximated LARGE 2
amounts of urine
Lab Results
03/15/25 07:07
03/15/25 07:07
Calcium 8.9 mg/dl (8.4-10.2) 03/15/25 07:07
Physical Exam
-
AAO x 3
No tachypnea on room air
No tachycardia
Abdomen soft
Left lower extremity surgical upper and lower anastomosis sites clean, dry, and intact. Upper pole of saphenectomy incision with small area of dehiscence, clean, dry, and intact no evidence of active bleeding, Steri-Strips applied, dressing reapplied
Palpable graft pulse, left foot warm
Palpable PT pulse
--- NOTE | 2025-03-17 07:57 | W.[place]-PDMP ---
[place]-PD[place]
-
Checked the [place]- Prescription Drug Monitoring Program website, no red flags identified; safe to proceed with prescription.
[2025-03-17] MEDS: NOVOLOG FLEXPEN-LOW RESISTANCE SC (08:00)
[2025-03-17] MEDS: CYMBALTA DELAYED RELEASE 60 MG PO (09:02)
[2025-03-17] MEDS: CRESTOR 20 MG PO (09:02)
[2025-03-17] MEDS: TOPROL XL 25 MG PO (09:03)
[2025-03-17] MEDS: FLOMAX 0.4 MG PO (09:03)
[2025-03-17] MEDS: HEPARIN 5000 UNITS SC (09:03)
[2025-03-17] MEDS: COZAAR 50 MG PO (09:03)
[2025-03-17] MEDS: LOW STRENGTH ASPIRIN 81 MG PO (09:03)
[2025-03-17] MEDS: PLAVIX 75 MG PO (09:03)
--- NOTE | 2025-03-17 10:21 | W.DS.TRANS ---
DC Summary - Application Support Technician
-
Discharge Instructions:
Discharge Diagnosis/Procedures Left superficial femoral artery to posterior
tibial artery bypass with ipsilateral
nonreversed greater saphenous vein conduit
Diet As tolerated
Activity No strenuous activity
Driving Restrictions Not until seen by your Dr
Bathing Restrictions OK to Shower
Other Services [facility]
Wound Care Please change your left surgical incision wound
dressing daily or as needed if soiled/wet.
Place 4 x 4 dry gauze over Steri-Strips, then
secure with gentle Arpit wrap. If Steri-Strips
fall off this is okay. If you experience any
increased bleeding, drainage, redness, foul
smell, fever, or chills please call our office.
Instructions:
Stand-Alone Forms: Vascular Surg Discharge Instr
Changes to Home Medications: Yes
Discharge Medications:
DC Medications w/original date entered in [employer]
olmesartan 40 mg tablet 20 mg PO DAILY Blood Pressure 12/17/23
tamsulosin 0.4 mg capsule 0.4 mg PO DAILY Urinary Issue 12/17/23
metoprolol succinate 25 mg capsule sprinkle, ext. release 24 hr 25 mg PO DAILY Blood Pressure 12/19/23
acetaminophen 325 mg tablet (Tylenol) 650 mg PO Q4H PRN pain 12/18/24
rosuvastatin 20 mg tablet 20 mg PO DAILY High Cholesterol 12/18/24
aspirin 81 mg chewable tablet 81 mg PO DAILY #90 tabs 12/23/24
clopidogrel 75 mg tablet 75 mg PO DAILY #90 tabs 12/23/24
duloxetine 60 mg capsule,delayed release 60 mg PO DAILY Mental Health/Anxiety 03/05/25
levocetirizine 5 mg tablet 5 mg PO DAILY PRN congestion 03/05/25
polyethylene glycol 3350 17 gram/dose oral powder (Miralax) 4 g PO DAILY Constipation 03/11/25
oxycodone 5 mg tablet 5 mg PO Q4HPRN PRN moderate pain #10 tabs 03/13/25
Home Medication Changes
Added:
oxycodone 5 mg tablet 5 mg PO Q4HPRN PRN moderate pain #10 tabs 03/13/25
Pending Results: No
--- NOTE | 2025-03-17 11:12 | CM ---
Met with pt and family. Family translated for the CM. Reviewed the that [facility] will contact the pt/family to schedule first visit. IMM given via family and placed on chart
Pt is discharged to home with [facility]
[2025-03-17 11:30] VITALS: BP 119/47
[2025-03-17 11:43] LABS: Glucose - Point of Care 166 mg/dl (70-99)
== END 2025-03-17 13:30 | disposition home health service (06) | DRG 263 ==
LOC: 2 SOUTH 08:55
PROVIDERS: Nurse Practitioner; Nurse Practitioner Acute Care; Nurse Practitioner Primary Care; ADMITTING PHYSICIAN Surgery Vascular Surgery; CONSULT PHYSICIAN Internal Medicine; PRIMARYCARE PHYSICIAN Internal Medicine
PROC: 06BQ0ZZ Excision of Left Saphenous Vein, Open Approach (ICD-10-PCS; 2025-03-11)
PROC: 041L09N Bypass Left Femoral Artery to Posterior Tibial Artery with Autologous Venous Tissue, Open Approach (ICD-10-PCS; 2025-03-11)
DX: I70.222 Atherosclerosis of native arteries of extremities with rest pain, left leg (principal); E87.20 Acidosis, unspecified; C16.9 Malignant neoplasm of stomach, unspecified; E11.22 Type 2 diabetes mellitus with diabetic chronic kidney disease; E11.51 Type 2 diabetes mellitus with diabetic peripheral angiopathy without gangrene; Z87.891 Personal history of nicotine dependence; E87.5 Hyperkalemia; E11.65 Type 2 diabetes mellitus with hyperglycemia; I65.29 Occlusion and stenosis of unspecified carotid artery; I12.9 Hypertensive chronic kidney disease with stage 1 through stage 4 chronic kidney disease, or unspecified chronic kidney disease; N18.30 Chronic kidney disease, stage 3 unspecified; Z79.02 Long term (current) use of antithrombotics/antiplatelets; Z79.82 Long term (current) use of aspirin; Z79.899 Other long term (current) drug therapy
CPT/HCPCS: 35566; 36415; 71046; 80048; 82962; 83036; 85025; 85027; 85610; 85730; 86850; 86900; 86901; 97116; 97163